=== PATIENT | female | born 1980 | race Caucasian/White ===

== ENCOUNTER 2018-07-02 20:27 | Inpatient (IN) | payer MEDICARE, MEDICAID, SELFPAY ==
[2018-07-02 20:29] VITALS: BP 95/61; PULSE 141; RESP 16; TEMP 37.2; O2SAT 99; BMI 18.2
--- NOTE | 2018-07-02 22:58 | EKG12_ITS ---
Test Reason : Blood Pressure : / mmHG Vent. Rate : 136 BPM Atrial Rate : 136 BPM P-R Int : 120 ms QRS Dur : 082 ms QT Int : 284 ms P-R-T Axes : 074 091 066 degrees QTc Int : 427 ms Sinus tachycardia Biatrial enlargement Rightward axis Abnormal ECG Confirmed by LEONARD MORALES, LUNA ([id number]), loan expeditor LORENZA BARRY ([id number] on 07/05/2018 3:26:47 PM Referred By: PERCY Confirmed By:LNUA VALLE MD
--- NOTE | 2018-07-02 22:59 | CT_ITS ---
STUDY: CTA NECK WITH CONTRAST REASON FOR EXAM: Female, 38 years old. Headache and dizziness RADIATION DOSAGE (If Supplied By Facility): CTDIvol = ( 13.41 ) mGy, DLP = ( 472.65 ) mGycm TECHNIQUE: CT angiography with multi-detector data acquisition was performed from the aortic arch to the skull base following intravenous administration of 100 ml of Isovue 370 contrast. MIP images were reconstructed from the axial data set. Post-processing of the angiographic images was performed, with multiplanar reformation and 3D reconstruction. Individualized dose optimization techniques were used for this CT. COMPARISON: None. FINDINGS: AORTIC ARCH: Normal visualized aortic arch. Normal origins of the brachiocephalic, left common carotid, and left subclavian arteries. RIGHT CAROTID ARTERIES: Normal right common carotid artery (CCA). Normal right common carotid bulb. Normal origin of the right internal carotid (ICA) artery without a hemodynamically significant stenosis. Normal visualized cervical portion of the right internal carotid artery. Normal origin of the right external carotid artery (ECA). LEFT CAROTID ARTERIES: Normal left common carotid artery (CCA). Normal left common carotid bulb. Normal origin of the left internal carotid (ICA) artery without a hemodynamically significant stenosis. Normal visualized cervical portion of the left internal carotid artery. Normal origin of the left external carotid artery (ECA). VERTEBRAL ARTERIES: Normal bilateral vertebral arteries. CT/CTA Neck W/WO Contrast IMPRESSION: Normal bilateral cervical carotid and vertebral arteries. Electronically Signed: Lane Mendez MD at 1:26 EST , Service support ,
--- NOTE | 2018-07-02 22:59 | CT_ITS ---
STUDY: CTA OF THE BRAIN REASON FOR EXAM: Female, 38 years old. Headache RADIATION DOSAGE (If Supplied By Facility): CTDIvol = ( 30.80 ) mGy, DLP = ( 793.16 ) mGycm TECHNIQUE: CT angiography was performed with a multi-detector CT scanner. Data acquisition was obtained from the skull base through the vertex following intravenous administration of ml of . MIP images were reconstructed from the axial data set. Post-processing of the angiographic images was performed, with multiplanar reformation and 3D reconstruction. Individualized dose optimization techniques were used for this CT. COMPARISON: None. FINDINGS: Normal bilateral petrous carotid arteries. Normal right cavernous carotid artery with a normal supraclinoid bifurcation. Normal left cavernous carotid artery with a normal supraclinoid bifurcation. Normal right A1 segments of the anterior cerebral artery. Normal left A1 segments of the anterior cerebral artery. Normal intact anterior communicating artery (ACOM). Normal bilateral A2 segments of the anterior cerebral arteries. Normal right M1 and M2 segments of the middle cerebral arteries, with a normal M1 bifurcation. Normal left M1 and M2 segments of the middle cerebral arteries, with a normal M1 bifurcation. Normal right posterior communicating artery (PCOM). There is a persistent origin of the left posterior cerebral artery with absence of the posterior communicating artery (PCOM). Normal bilateral vertebral arteries. Normal basilar artery with a normal basilar bifurcation. The visualized bilateral superior cerebellar (SCA) arteries are normal. Normal bilateral P1, P2 and visualized P3 segments of the posterior cerebral arteries. There is no demonstrated aneurysm of the [place]. There is no demonstrated abnormality of the visualized brain. CT/CTA Head W/WO Contrast IMPRESSION: Normal [place] without a demonstrated aneurysm or hemodynamically significant stenosis. Electronically Signed: Lane Mendez MD at 1:19 EST , Service support ,
--- NOTE | 2018-07-02 23:05 | RAD_ITS ---
STUDY: X-RAY CHEST REASON FOR EXAM: Female, 38 years old. Headache, nausea, muscle spasms, and no appetite TECHNIQUE: Single AP portable view of the chest. COMPARISON: Prior study of 01/03/2012 FINDINGS: air sampling and monitoring leads are present. The lungs are clear and expanded. There is no demonstrated pleural abnormality. Normal size heart. Normal mediastinum and anjel. Normal visualized pulmonary arteries. Normal visualized aortic arch and descending thoracic aorta. Normal visualized thoracic spine. Normal visualized ribs, clavicles, and shoulders. There is no demonstrated abnormality of the visualized soft tissue structures of the upper abdomen. RAD/Chest 1 View (Portable) IMPRESSION: Normal x-ray examination of the chest. Electronically Signed: Wan Bryant MD at 23:23 EST , Service support ,
[2018-07-02 23:20] LABS: Mucous, Urine 0 SEEN /hpf (<or=2+)
[2018-07-02 23:22] LABS: Color, Urine Yellow (Yellow); Glucose, Dipstick Normal (Normal); Ketone-Dipstick Negative (Negative); Leukocyte Esterase-Dipstick 500 /ul (Negative); Nitrite-Dipstick Positive (Negative); Occult Blood-Urine 250 /ul (Negative); Protein-Dipstick 100 mg/dl (Negative); Urine Bilirubin Dipstick Negative (Negative); Urine Clarity Sl. Cloudy (Clear); Urine Urobilinogen 8 mg/dl (Normal); Urine pH 6.5 (5.0 - 8.0)
[2018-07-02 23:29] LABS: Bacteria 2+ /hpf (None Seen); Red Blood Cells-Urine 5-10 SEEN /hpf (0-5); Squamous Epithelial Cells - UA 0-5 SEEN /hpf (5-10); White Blood Cells 50-100 SEEN /hpf (0-5)
[2018-07-02 23:31] VITALS: BP 109/59; PULSE 131; RESP 19; TEMP 36.9; O2SAT 100; O2SAT 98
[2018-07-02 23:31] LABS: Absolute Neutrophil Count 17.1 X10^3/uL (2.0-7.7); Basophil# 0.03 X10^3/uL; Basophil% 0.1 % (0-1); Eosinophil# 0.03 X10^3/uL; Eosinophils% 0.1 % (0-5); Hematocrit 44.6 % (37-47); Hemoglobin 15.6 g/dl (12.0-15.0); Lymphocyte % 5.9 % (19-41); Mean Corpuscular Hgb 32.2 pg (27.0-32.0); Mean Corpuscular Volume 92.1 fL (81-99); Mean Platelet Vol. 10.1 fl (6.2-12.0); Monocyte# 1.78 X10^3/uL; Monocyte% 8.8 % (0-10); Neutrophil # 17.11 X10^3/uL (2.7-7.7); Neutrophil % 84.8 % (47-70); Platelet Count 336 K/mm3 (150-450); RBC Distribution Width CV 12.6 % (11.6-14.6); RBC Distribution Width SD 42.8 fl (35.1-43.9); Red Blood Count 4.84 M/mm3 (4.2-5.4); White Blood Count 20.2 K/mm3 (4.4-11.0)
[2018-07-02 23:32] LABS: Differential Indicated SCAN CRITERIA MET; POSITIVE COUNT NO; POSITIVE DIFFERENTIAL YES; POSITIVE MORPHOLOGY NO
[2018-07-02] MEDS: 0.9% Normal Saline 1,000 ML IV.SOLN. 2000 ML IV (23:34)
[2018-07-02] MEDS: Ondansetron 4 MG/2 ML Vial IV (23:34)
[2018-07-02] MEDS: Morphine 4 MG/ML Syringe IV (23:34)
[2018-07-02 23:37] LABS: International Normalized Ratio 1.1; Partial Thromboplast Time 37.6 Seconds (24.1-36.2); Prothrombin Time (Protime)PT. 14.1 SECONDS (11.7-14.9)
[2018-07-02 23:43] LABS: ALB/GLOB Ratio 0.5 RATIO (0.9-2.4); AST(SGOT) 33 U/L (15-37); Alanine Aminotransfer ALT/SGPT 29 U/L (13-56); Albumin, Serum 2.8 g/dL (3.2-5.0); Alkaline Phosphatase 271 U/L (45-117); Anion Gap 11 (5-15); BUN 16 mg/dL (7-18); BUN/Creat Ratio 12.3 RATIO (10-20); CPK Total, Creatine Kinase 34 U/L (26-192); Chloride 92 mmol/L (98-107); EST Glomerular Filtration Rate 48 mL/min (>60); Est Glom Filt Rate - Afr Amer 58 mL/min (>60); Estimated Creatinine Clearance 49.43 ml/min; Globulin 5.5 g/dL (2.2-4.2); Glucose 124 mg/dL (74-106); Potassium 3.9 mmol/L (3.5-5.1); Protein, Total 8.3 g/dL (6.4-8.2); Sodium Level 131 mmol/L (136-145); Thyroid Stim Hormone (TSH) 1.18 uIU/mL (0.358-3.74)
[2018-07-03] VITALS (35 sets, daily range): BP systolic 81–127; BP diastolic 44–91; PULSE 99–156; RESP 15–27; TEMP 35.9–39.5; O2SAT 92–100; BMI 18.0; BMI 18.1
[2018-07-03 00:13] LABS: Lactic Acid 1.9 mmol/L (0.4-2.0)
[2018-07-03 00:21] LABS: Anisocytosis RARE; Macrocytosis RARE; Platelet Estimate ADEQUATE (ADEQ); Toxic Granulation RARE
[2018-07-03 01:36] LABS: Body Fluid Mononuclear WBC # 0.001 10^3/uL; Total Cell Count CSF 0.001 10^3/uL (0.000-0.000); White Count, CSF 0.001 10^3/uL (0.000-0.000)
[2018-07-03 01:53] LABS: RBC Count, Spinal Fluid 0 /mm-3 (None seen)
[2018-07-03 01:54] LABS: Appearance CSF (character) CLEAR (Clear); Auto B Fluid Analyzer BKGD Ct COUNTS W/IN LIMITS (W/IN LIMITS); CSF Color COLORLESS (Colorless); Tested Tube # 4
[2018-07-03 02:00] LABS: Glucose Spinal Fluid 65 mg/dL (40-75)
[2018-07-03 02:02] LABS: Body Fluid QC Type(s) BF1Q
--- NOTE | 2018-07-03 02:02 | PCM.HP.STD ---
Problem List (1) Back pain Status: Acute Qualifiers: Back pain location: low back pain (2) Headache Status: Acute Qualifiers: Headache type: unspecified Headache chronicity pattern: acute headache (3) Urinary frequency Status: Acute History of Present Illness Date of Admission: 07/03/18 Chief Complaint: urinary frequency, headache, low back pain The patient is a 38 year old female patient who presents to the ER with the chief complaint of generalized illness, she has headache, low back pain and urinary frequency. This began on Monday with low back pain. On Monday she tried to eat pancakes for breakfast but was nauseated and threw them up. She has not been able to tolerate much by PO since. She now has worsening pain in her lower back with an acute headache. She states that her headache was relieved somewhat after having the lumbar puncture, results pending at this time. CBC shows leukocytosis with a left shift. She is tachycardic with heart rate of 145. IV fluid resuscitation and antibiotics were initiated in the ER. She denies skin rash and was not appreciated on inspection. Lactate was 1.9. She will be admitted to the ICU. Past Medical History Allergies ibuprofen Allergy (Verified 07/02/18 20:32) Hives Home Medications: Ambulatory Orders Medication Instructions Recorded Sumatriptan Succinate [Imitrex] 50 mg PO X1 PRN 01/19/16 Topiramate [Topamax] 50 mg PO PRN PRN 12/13/16 Oxycodone [Oxyir] 5 mg PO Q4H PRN PRN #30 tablet 12/14/16 Smoking Status: Current every day smoker - *Family History Maternal History Items: No pertinent history Review of Systems Constitutional: Reports: Fever, Malaise, Weakness, Fatigue. Denies: Chills, Weight Change HEENT: Denies: Head Aches, Sinus Congestion, Sinus Drainage Cardiovascular: Denies: Chest Pain, Palpitations Respiratory: Denies: Cough, Shortness of breath at rest, Sputum production Gastrointestinal: Reports: Nausea, Vomiting. Denies: Abdominal Pain Genitourinary: Denies: Dysuria Musculoskeletal: Reports: Back Pain. Denies: Joint Pain, Joint Tenderness Skin: Denies: Rash, Wounds Neurological: Reports: Headaches. Denies: Focal weakness, Numbness, Tingling Psychiatric: Denies: Anxiety, Depression, Homicidal Ideations, Suicidal Ideations Hematologic/ Lymphatic: Denies: Easy Bruising, Easy Bleeding VTE Information - Inpt Only VTE Present on Admission: No VTE Mechan Device Prophylaxis: None VTE Pharm Prophylaxis ordered?: Yes Patient Problems: Active and Suspected Problems Back pain (Acute) Headache (Acute) Urinary frequency (Acute) - Physical Exam General: Alert, Oriented x3, Cooperative HEENT: Atraumatic, PERRLA, EOMI, Normocephalic Neck: Supple Lungs: Clear to auscultation, Normal air movement Cardiovascular: Regular rate, Normal S1, Normal S2, No murmurs, Tachycardic Abdomen: Bowel Sounds Present, Soft, Non Tender Extremities: No edema Skin: No rashes, No breakdown Musculoskeletal: No Tenderness to Palpation of Joints or Extremities, Tenderness - low back pain, neg cva tenderness Neurological: Neuro grossly intact Psych/Mental Status: Normal Affect, Appropriate Vital Signs Temp Pulse Resp BP Pulse Ox 99.0 F 141 H 24 H 102/84 H 98 07/03/18 01:33 07/03/18 01:33 07/03/18 01:33 07/03/18 01:33 07/03/18 01:33 Oxygen Delivery Method Room Air Weight: 120 lb Body Mass Index (BMI) 18.2 Laboratory Tests Past 24 Hrs 07/02/18 07/02/18 07/02/18 22:01 22:01 22:01 WBC 20.2 H RBC 4.84 Hgb 15.6 H Hct 44.6 MCV 92.1 MCH 32.2 H MCHC 35.0 RDW 12.6 RDW Differential 42.8 Plt Count 336 MPV 10.1 Immature Gran % (Auto) 0.300 Neut % (Auto) 84.8 H Lymph % (Auto) 5.9 L [place] % (Auto) 8.8 Eos % (Auto) 0.1 Baso % (Auto) 0.1 Absolute Neuts (auto) 17.1 H Absolute Lymphs (auto) 1.20 Total Counted Not Reportable Differential Comment SEE COMMENT Diff Path Review May foll Toxic Granulation RARE Platelet Estimate ADEQUATE Anisocytosis RARE Macrocytosis RARE PT 14.1 INR 1.1 APTT 37.6 H Sodium 131 L Potassium 3.9 Chloride 92 L Carbon Dioxide 28.0 Anion Gap 11 BUN 16 Creatinine 1.30 H Estim Creat Clear Calc 49.43 Est GFR (MDRD) Af Amer 58 L Est GFR (MDRD) Non-Af 48 L BUN/Creatinine Ratio 12.3 Glucose 124 H Lactic Acid Calcium 9.0 Total Bilirubin 0.70 AST 33 ALT 29 Alkaline Phosphatase 271 H Total Creatine Kinase 34 Total Protein 8.3 H Albumin 2.8 L Globulin 5.5 H Albumin/Globulin Ratio 0.5 L TSH 1.18 Urine Color Urine Clarity Urine pH Ur Specific [place] Urine Protein Urine Glucose (UA) Urine Ketones Urine Occult Blood Urine Nitrite Urine Bilirubin Urine Urobilinogen Ur Leukocyte Esterase Urine RBC Urine WBC Ur Squamous Epith Cells Urine Bacteria Urine Mucus Fld Polynuclear WBCs # Fld Polynuclear WBCs % Fluid Mononuclear WBCs Fld Mononuclear WBCs % CSF Appearance CSF Color CSF WBC CSF RBC CSF Cell Count Tube # CSF Total Cell Counted CSF Comment CSF Glucose CSF Total Protein 07/02/18 07/02/18 07/03/18 22:44 23:45 01:20 WBC RBC Hgb Hct MCV MCH MCHC RDW RDW Differential Plt Count MPV Immature Gran % (Auto) Neut % (Auto) Lymph % (Auto) [place] % (Auto) Eos % (Auto) Baso % (Auto) Absolute Neuts (auto) Absolute Lymphs (auto) Total Counted Differential Comment Diff Path Review Toxic Granulation Platelet Estimate Anisocytosis Macrocytosis PT INR APTT Sodium Potassium Chloride Carbon Dioxide Anion Gap BUN Creatinine Estim Creat Clear Calc Est GFR (MDRD) Af Amer Est GFR (MDRD) Non-Af BUN/Creatinine Ratio Glucose Lactic Acid 1.9 Calcium Total Bilirubin AST ALT Alkaline Phosphatase Total Creatine Kinase Total Protein Albumin Globulin Albumin/Globulin Ratio TSH Urine Color Yellow Urine Clarity Sl. Cloudy Urine pH 6.5 Ur Specific [place] 1.010 Urine Protein 100 H Urine Glucose (UA) Normal Urine Ketones Negative Urine Occult Blood 250 H Urine Nitrite Positive H Urine Bilirubin Negative Urine Urobilinogen 8 H Ur Leukocyte Esterase 500 H Urine RBC 5-10 SEEN Urine WBC 50-100 SEEN Ur Squamous Epith Cells 0-5 SEEN Urine Bacteria 2+ Urine Mucus 0 SEEN Fld Polynuclear WBCs # Fld Polynuclear WBCs % Fluid Mononuclear WBCs Fld Mononuclear WBCs % CSF Appearance CSF Color CSF WBC CSF RBC CSF Cell Count Tube # CSF Total Cell Counted CSF Comment CSF Glucose 65 CSF Total Protein 07/03/18 07/03/18 01:20 01:20 WBC RBC Hgb Hct MCV MCH MCHC RDW RDW Differential Plt Count MPV Immature Gran % (Auto) Neut % (Auto) Lymph % (Auto) [place] % (Auto) Eos % (Auto) Baso % (Auto) Absolute Neuts (auto) Absolute Lymphs (auto) Total Counted Differential Comment Diff Path Review Toxic Granulation Platelet Estimate Anisocytosis Macrocytosis PT INR APTT Sodium Potassium Chloride Carbon Dioxide Anion Gap BUN Creatinine Estim Creat Clear Calc Est GFR (MDRD) Af Amer Est GFR (MDRD) Non-Af BUN/Creatinine Ratio Glucose Lactic Acid Calcium Total Bilirubin AST ALT Alkaline Phosphatase Total Creatine Kinase Total Protein Albumin Globulin Albumin/Globulin Ratio TSH Urine Color Urine Clarity Urine pH Ur Specific [place] Urine Protein Urine Glucose (UA) Urine Ketones Urine Occult Blood Urine Nitrite Urine Bilirubin Urine Urobilinogen Ur Leukocyte Esterase Urine RBC Urine WBC Ur Squamous Epith Cells Urine Bacteria Urine Mucus Fld Polynuclear WBCs # 0.000 Fld Polynuclear WBCs % 0.0 Fluid Mononuclear WBCs 0.001 Fld Mononuclear WBCs % 100.0 CSF Appearance Pending CSF Color Pending CSF WBC 0.001 H CSF RBC 0 CSF Cell Count Tube # Pending CSF Total Cell Counted 0.001 H CSF Comment Pending CSF Glucose CSF Total Protein Pending Assessment/Plan All Active Problems Back pain (Acute) Headache (Acute) Urinary frequency (Acute) Plan - admit to ICU - consult health informatics advisor - continue Rocephin and Vancomycin - currently treating UTI and ruling out meningitis. - IV hydration following sepsis protocol. - LMWH for DVT prophylaxis - dilaudid 1mg IV q 3 hrs prn severe pain - nicoderm patch 14mg daily - cbc, bmp in am Code Visit Inpatient E&M: 74393 Init Hosp L3
--- NOTE | 2018-07-03 02:32 | NURSING ---
REPORT GIVEN TO GOOD IN ICU.
[2018-07-03] MEDS: HYDROmorphone 1 MG/ML Syringe IV (03:13)
--- NOTE | 2018-07-03 03:14 | PCM.RX.CS ---
Consult Pharmacy has been consulted to manage selected antiobiotic: Vancomycin Type of Consult: New start Suspected Infection: Sepsis Prior Doses of Antibiotics Received/Current Regimen: Medications Vancomycin HCl (Vancomycin) 1,000 mg in 200 mls @ 200 mls/hr IV Q24H WAQAR Discontinued Medications Vancomycin HCl 750 mg/ (Dextrose) 265 mls @ 250 mls/hr IV X1 ONE Stop: 07/03/18 02:04 Last Admin: 07/03/18 02:12 Dose: 250 mls/hr Labs: Sodium 131 mmol/L (136-145) L 07/02/18 22:01 Potassium 3.9 mmol/L (3.5-5.1) 07/02/18 22:01 Chloride 92 mmol/L (98-107) L 07/02/18 22:01 Carbon Dioxide 28.0 mmol/L (21.0-32.0) 07/02/18 22:01 Anion Gap 11 (5-15) 07/02/18 22:01 BUN 16 mg/dL (7-18) 07/02/18 22:01 Creatinine 1.30 mg/dL (0.55-1.02) H 07/02/18 22:01 Est GFR (MDRD) Af Amer 58 mL/min (>60) L 07/02/18 22:01 Est GFR (MDRD) Non-Af 48 mL/min (>60) L 07/02/18 22:01 BUN/Creatinine Ratio 12.3 RATIO (10-20) 07/02/18 22:01 Glucose 124 mg/dL (74-106) H 07/02/18 22:01 Microbiology: Microbiology 07/03/18 01:20 Csf, Spinal Fluid Gram Stain - Preliminary 07/03/18 01:20 Urine, Clean Catch Streptococcus pneumoniae Antigen (M - Final Weight used for dosin.9 kg Estimated Creatinine Clearance: 49 Goal Trough: 15-20 mcg/mL Pharmacy Plan for Drug Dosing: Pharmacy Service will continue to monitor and adjust dosing as required. Follow-Up Labs: Trough Vancomycin Labs to be done on [date and time ordered]: 07/05/18 @0132
[2018-07-03] MEDS: 0.9% Normal Saline 1,000 ML 150 ML IV ×3 (03:21→18:12)
[2018-07-03 04:37] LABS: Hematocrit 37.4 % (37-47); Hemoglobin 12.7 g/dl (12.0-15.0); Mean Corpuscular Hgb 31.2 pg (27.0-32.0); Mean Corpuscular Volume 91.9 fL (81-99); Mean Platelet Vol. 9.8 fl (6.2-12.0); Platelet Count 278 K/mm3 (150-450); RBC Distribution Width CV 12.8 % (11.6-14.6); RBC Distribution Width SD 43.1 fl (35.1-43.9); Red Blood Count 4.07 M/mm3 (4.2-5.4)
[2018-07-03 04:45] LABS: Scan Indicated on CBC? Y/N NO
[2018-07-03 04:49] LABS: Anion Gap 9 (5-15); BUN 14 mg/dL (7-18); BUN/Creat Ratio 12.1 RATIO (10-20); Calcium,Total 7.6 mg/dL (8.5-10.1); Chloride 99 mmol/L (98-107); Creatinine, Serum 1.16 mg/dL (0.55-1.02); EST Glomerular Filtration Rate 55 mL/min (>60); Est Glom Filt Rate - Afr Amer 67 mL/min (>60); Estimated Creatinine Clearance 54.86 ml/min; Glucose 97 mg/dL (74-106); Potassium 3.3 mmol/L (3.5-5.1); Sodium Level 135 mmol/L (136-145)
[2018-07-03] MEDS: Metoprolol Tartrate 5 MG/5 ML Vial IV (04:52)
[2018-07-03] MEDS: Acetaminophen 325 MG Tablet 650 MG PO ×3 (04:52→17:00)
--- NOTE | 2018-07-03 07:59 | PCM.CON.CC ---
Reason for Consult Date of Consultation: 07/03/18 Reason for Consultation: Sepsis History of Present Illness: The patient is a 38-year-old female, with a history as outlined below, who presented to the emergency department on July 03 with complaints of generalized weakness, poor p.o. intake, foul-smelling urine, abdominal discomfort, nausea and vomiting. She was also noted to have a headache without photophobia or nuchal rigidity. The patient is a current every day smoker. On presentation to the emergency department, the patient was afebrile and tachycardic with a heart rate of 140. Initial laboratory evaluation revealed an elevated white blood cell count to 20,000. Chemistry profile revealed mild hyponatremia and hypochloremia along with acute kidney injury with a creatinine of 1.30. Serum lactate was normal at 1.9. Alkaline phosphatase was increased to 271 with normal transaminases. Head neck CTA was obtained and found to be normal. Plain film chest x-ray revealed no acute cardiopulmonary process. The patient received supplemental IV fluid hydration and was started on antibiotics. She was subsequently transferred to the medical intensive care unit for ongoing management. Past Medical History Allergies ibuprofen Allergy (Verified 07/02/18 20:32) Hives Home Medications: Ambulatory Orders Medication Instructions Recorded Aspirin/Acetaminophen/Caffeine 1 each PO DAILY PRN 07/03/18 [Excedrin Migraine Caplet] Smoking Status: Current every day smoker - *Family History Maternal History Items: No pertinent history Review of Systems Constitutional: Reports: Fever, Malaise, Weakness Eyes: Denies: Blurred vision, Double vision HEENT: Denies: Head Aches, Sinus Congestion, Sinus Drainage Cardiovascular: Denies: Chest Pain, Palpitations Gastrointestinal: Reports: Abdominal Pain, Nausea, Vomiting. Denies: Diarrhea Genitourinary: Reports: Frequency. Denies: Dysuria Musculoskeletal: Reports: Back Pain Skin: Denies: Rash, Wounds Neurological: Reports: Headaches Psychiatric: Denies: Anxiety, Depression, Homicidal Ideations, Suicidal Ideations Hematologic/ Lymphatic: Denies: Easy Bruising, Easy Bleeding Patient Problems: Active and Suspected Problems Back pain (Acute) Headache (Acute) Urinary frequency (Acute) Objective: The patient's most recent lab work, culture data and imaging studies have all been personally reviewed. Blood, urine and CSF cultures are pending. - Physical Exam General: Alert, Oriented x3, Cooperative, No apparent distress HEENT: Atraumatic, PERRLA, Normocephalic Oral: No Gingival or Mucosal Lesions/ Ulcerations Neck: Supple, No Nodes, Trachea Midline Lungs: No rhonchi, No wheeze, No rales, Diminished Cardiovascular: Normal S1, Normal S2, No murmurs, Tachycardic Abdomen: Bowel Sounds Present, Soft, Non Tender Extremities: No clubbing, No cyanosis, No edema Skin: No breakdown, - - Multiple tattoos noted Musculoskeletal: No Tenderness to Palpation of Joints or Extremities Lymphatic: No Cervical, Supraclavicular, or Inguinal Adenopathy Neurological: Cranial nerves II-XII grossly intact, Neuro grossly intact Psych/Mental Status: Normal Affect, Appropriate Vital Signs Temp Pulse Resp BP Pulse Ox 37.9 C H 119 H 20 H 85/66 L 98 07/03/18 06:00 07/03/18 07:00 07/03/18 07:00 07/03/18 07:00 07/03/18 07:00 Oxygen Flow Rate (L/min) 2 Oxygen Delivery Method Nasal Cannula Weight: 118 lb 13.266 oz Body Mass Index (BMI) 18.0 Intake and Output for Last 24 Hours 07/01/18 07/02/18 07/03/18 23:59 23:59 23:59 Intake Total 1512 / 1512 Output Total 500 / 500 Balance 1012 / 1012 Microbiology Past 72 Hours 07/03/18 01:20 Gram Stain - Preliminary Csf, Spinal Fluid 07/03/18 01:20 Streptococcus pneumoniae Antigen (M - Final Urine, Clean Catch Laboratory Tests Past 24 Hrs 07/02/18 07/02/18 07/02/18 22:01 22:01 22:01 WBC 20.2 H RBC 4.84 Hgb 15.6 H Hct 44.6 MCV 92.1 MCH 32.2 H MCHC 35.0 RDW 12.6 RDW Differential 42.8 Plt Count 336 MPV 10.1 Immature Gran % (Auto) 0.300 Neut % (Auto) 84.8 H Lymph % (Auto) 5.9 L [place] % (Auto) 8.8 Eos % (Auto) 0.1 Baso % (Auto) 0.1 Absolute Neuts (auto) 17.1 H Absolute Lymphs (auto) 1.20 Total Counted Not Reportable Differential Comment SEE COMMENT Diff Path Review May foll Toxic Granulation RARE Platelet Estimate ADEQUATE Anisocytosis RARE Macrocytosis RARE PT 14.1 INR 1.1 APTT 37.6 H Sodium 131 L Potassium 3.9 Chloride 92 L Carbon Dioxide 28.0 Anion Gap 11 BUN 16 Creatinine 1.30 H Estim Creat Clear Calc 49.43 Est GFR (MDRD) Af Amer 58 L Est GFR (MDRD) Non-Af 48 L BUN/Creatinine Ratio 12.3 Glucose 124 H Lactic Acid Calcium 9.0 Total Bilirubin 0.70 AST 33 ALT 29 Alkaline Phosphatase 271 H Total Creatine Kinase 34 Total Protein 8.3 H Albumin 2.8 L Globulin 5.5 H Albumin/Globulin Ratio 0.5 L TSH 1.18 Urine Color Urine Clarity Urine pH Ur Specific [place] Urine Protein Urine Glucose (UA) Urine Ketones Urine Occult Blood Urine Nitrite Urine Bilirubin Urine Urobilinogen Ur Leukocyte Esterase Urine RBC Urine WBC Ur Squamous Epith Cells Urine Bacteria Urine Mucus Fld Polynuclear WBCs # Fld Polynuclear WBCs % Fluid Mononuclear WBCs Fld Mononuclear WBCs % CSF Appearance CSF Color CSF WBC CSF RBC CSF Cell Count Tube # CSF Total Cell Counted CSF Comment CSF Glucose CSF Total Protein 07/02/18 07/02/18 07/03/18 22:44 23:45 01:20 WBC RBC Hgb Hct MCV MCH MCHC RDW RDW Differential Plt Count MPV Immature Gran % (Auto) Neut % (Auto) Lymph % (Auto) [place] % (Auto) Eos % (Auto) Baso % (Auto) Absolute Neuts (auto) Absolute Lymphs (auto) Total Counted Differential Comment Diff Path Review Toxic Granulation Platelet Estimate Anisocytosis Macrocytosis PT INR APTT Sodium Potassium Chloride Carbon Dioxide Anion Gap BUN Creatinine Estim Creat Clear Calc Est GFR (MDRD) Af Amer Est GFR (MDRD) Non-Af BUN/Creatinine Ratio Glucose Lactic Acid 1.9 Calcium Total Bilirubin AST ALT Alkaline Phosphatase Total Creatine Kinase Total Protein Albumin Globulin Albumin/Globulin Ratio TSH Urine Color Yellow Urine Clarity Sl. Cloudy Urine pH 6.5 Ur Specific [place] 1.010 Urine Protein 100 H Urine Glucose (UA) Normal Urine Ketones Negative Urine Occult Blood 250 H Urine Nitrite Positive H Urine Bilirubin Negative Urine Urobilinogen 8 H Ur Leukocyte Esterase 500 H Urine RBC 5-10 SEEN Urine WBC 50-100 SEEN Ur Squamous Epith Cells 0-5 SEEN Urine Bacteria 2+ Urine Mucus 0 SEEN Fld Polynuclear WBCs # Fld Polynuclear WBCs % Fluid Mononuclear WBCs Fld Mononuclear WBCs % CSF Appearance CSF Color CSF WBC CSF RBC CSF Cell Count Tube # CSF Total Cell Counted CSF Comment CSF Glucose 65 CSF Total Protein 07/03/18 07/03/18 07/03/18 01:20 01:20 03:58 WBC 15.0 H RBC 4.07 L Hgb 12.7 Hct 37.4 MCV 91.9 MCH 31.2 MCHC 34.0 RDW 12.8 RDW Differential 43.1 Plt Count 278 MPV 9.8 Immature Gran % (Auto) Neut % (Auto) Lymph % (Auto) [place] % (Auto) Eos % (Auto) Baso % (Auto) Absolute Neuts (auto) Absolute Lymphs (auto) Total Counted Differential Comment Diff Path Review Toxic Granulation Platelet Estimate Anisocytosis Macrocytosis PT INR APTT Sodium Potassium Chloride Carbon Dioxide Anion Gap BUN Creatinine Estim Creat Clear Calc Est GFR (MDRD) Af Amer Est GFR (MDRD) Non-Af BUN/Creatinine Ratio Glucose Lactic Acid Calcium Total Bilirubin AST ALT Alkaline Phosphatase Total Creatine Kinase Total Protein Albumin Globulin Albumin/Globulin Ratio TSH Urine Color Urine Clarity Urine pH Ur Specific [place] Urine Protein Urine Glucose (UA) Urine Ketones Urine Occult Blood Urine Nitrite Urine Bilirubin Urine Urobilinogen Ur Leukocyte Esterase Urine RBC Urine WBC Ur Squamous Epith Cells Urine Bacteria Urine Mucus Fld Polynuclear WBCs # 0.000 Fld Polynuclear WBCs % 0.0 Fluid Mononuclear WBCs 0.001 Fld Mononuclear WBCs % 100.0 CSF Appearance CLEAR CSF Color COLORLESS CSF WBC 0.001 H CSF RBC 0 CSF Cell Count Tube # 4 CSF Total Cell Counted 0.001 H CSF Comment May follow CSF Glucose CSF Total Protein 40.0 07/03/18 03:58 WBC RBC Hgb Hct MCV MCH MCHC RDW RDW Differential Plt Count MPV Immature Gran % (Auto) Neut % (Auto) Lymph % (Auto) [place] % (Auto) Eos % (Auto) Baso % (Auto) Absolute Neuts (auto) Absolute Lymphs (auto) Total Counted Differential Comment Diff Path Review Toxic Granulation Platelet Estimate Anisocytosis Macrocytosis PT INR APTT Sodium 135 L Potassium 3.3 L Chloride 99 Carbon Dioxide 27.0 Anion Gap 9 BUN 14 Creatinine 1.16 H Estim Creat Clear Calc 54.86 Est GFR (MDRD) Af Amer 67 Est GFR (MDRD) Non-Af 55 L BUN/Creatinine Ratio 12.1 Glucose 97 Lactic Acid Calcium 7.6 L Total Bilirubin AST ALT Alkaline Phosphatase Total Creatine Kinase Total Protein Albumin Globulin Albumin/Globulin Ratio TSH Urine Color Urine Clarity Urine pH Ur Specific [place] Urine Protein Urine Glucose (UA) Urine Ketones Urine Occult Blood Urine Nitrite Urine Bilirubin Urine Urobilinogen Ur Leukocyte Esterase Urine RBC Urine WBC Ur Squamous Epith Cells Urine Bacteria Urine Mucus Fld Polynuclear WBCs # Fld Polynuclear WBCs % Fluid Mononuclear WBCs Fld Mononuclear WBCs % CSF Appearance CSF Color CSF WBC CSF RBC CSF Cell Count Tube # CSF Total Cell Counted CSF Comment CSF Glucose CSF Total Protein Clinical Impression(s) from Imaging Studies Head CTA 07/02/18 22:59 IMPRESSION: Normal [place] without a demonstrated aneurysm or hemodynamically significant stenosis. Electronically Signed: Lane Mendez MD at 1:19 EST , Service support , Neck CTA 07/02/18 22:59 IMPRESSION: Normal bilateral cervical carotid and vertebral arteries. Electronically Signed: Lane Mendez MD at 1:26 EST , Service support , Chest X-Ray 07/02/18 23:05 IMPRESSION: Normal x-ray examination of the chest. Electronically Signed: Wan Bryant MD at 23:23 EST , Service support , Assessment/Plan Active and Suspected Problems Back pain (Acute) Headache (Acute) Urinary frequency (Acute) RECOMMENDATIONS: 1. Continue broad-spectrum antibiotics, pending finalized infectious workup. 2. Discontinue Dilaudid. 3. Continue Lovenox for DVT prophylaxis 4. Tylenol as needed for headache 5. Continue supplemental IV fluid hydration 6. Potassium repletion as indicated. IMPRESSIONS: 1. Sepsis secondary to suspected cystitis The patient presented with symptoms concerning for urinary tract infection with urinalysis consistent with potential infectious etiology. Urine and blood cultures are currently pending. Continue ceftriaxone, pending finalized infectious workup. Okay from my perspective to discontinue vancomycin. Continue supplemental IV fluid hydration accordingly. Encourage p.o. intake. The patient remains hemodynamically stable. 2. Nonspecific headache Low clinical index suspicion for underlying meningitis. LP was completed in the emergency department but no organisms were identified on Gram stain. Tylenol can be utilized as needed for continued headache pain. 3. Acute kidney injury Likely prerenal in etiology. Anticipate improvement with volume expansion. Urine output remains appropriate. No indication for renal replacement therapy at this time. 4. Hypokalemia Potassium repletion as ordered. Recheck level in the morning. 5. Tobacco dependency Smoking cessation is advisable. Nicotine replacement therapy can be offered while admitted to the hospital. This note was generated with [employer] dictation software. It may contain incorrect words, spelling, and punctuation that were not noted in checking the note before signing. Code Visit Inpatient E&M: 03328 Init Hosp L3
--- NOTE | 2018-07-03 08:06 | CON.PCM_ITS ---
Reason for Consult Date of Consultation: 07/03/18 Reason for Consultation: Sepsis History of Present Illness: The patient is a 38-year-old female, with a history as outlined below, who presented to the emergency department on July 03 with complaints of generalized weakness, poor p.o. intake, foul-smelling urine, abdominal discomfort, nausea and vomiting. She was also noted to have a headache without photophobia or nuchal rigidity. The patient is a current every day smoker. On presentation to the emergency department, the patient was afebrile and tachycardic with a heart rate of 140. Initial laboratory evaluation revealed an elevated white blood cell count to 20,000. Chemistry profile revealed mild hyponatremia and hypochloremia along with acute kidney injury with a creatinine of 1.30. Serum lactate was normal at 1.9. Alkaline phosphatase was increased to 271 with normal transaminases. Head neck CTA was obtained and found to be normal. Plain film chest x-ray revealed no acute cardiopulmonary process. The patient received supplemental IV fluid hydration and was started on antibiotics. She was subsequently transferred to the medical intensive care unit for ongoing management. Past Medical History Allergies ibuprofen Allergy (Verified 07/02/18 20:32) Hives Home Medications: Ambulatory Orders Medication Instructions Recorded Aspirin/Acetaminophen/Caffeine 1 each PO DAILY PRN 07/03/18 [Excedrin Migraine Caplet] Smoking Status: Current every day smoker - *Family History Maternal History Items: No pertinent history Review of Systems Constitutional: Reports: Fever, Malaise, Weakness Eyes: Denies: Blurred vision, Double vision HEENT: Denies: Head Aches, Sinus Congestion, Sinus Drainage Cardiovascular: Denies: Chest Pain, Palpitations Gastrointestinal: Reports: Abdominal Pain, Nausea, Vomiting. Denies: Diarrhea Genitourinary: Reports: Frequency. Denies: Dysuria Musculoskeletal: Reports: Back Pain Skin: Denies: Rash, Wounds Neurological: Reports: Headaches Psychiatric: Denies: Anxiety, Depression, Homicidal Ideations, Suicidal Ideations Hematologic/ Lymphatic: Denies: Easy Bruising, Easy Bleeding Patient Problems: Active and Suspected Problems Back pain (Acute) Headache (Acute) Urinary frequency (Acute) Objective: The patient's most recent lab work, culture data and imaging studies have all been personally reviewed. Blood, urine and CSF cultures are pending. - Physical Exam General: Alert, Oriented x3, Cooperative, No apparent distress HEENT: Atraumatic, PERRLA, Normocephalic Oral: No Gingival or Mucosal Lesions/ Ulcerations Neck: Supple, No Nodes, Trachea Midline Lungs: No rhonchi, No wheeze, No rales, Diminished Cardiovascular: Normal S1, Normal S2, No murmurs, Tachycardic Abdomen: Bowel Sounds Present, Soft, Non Tender Extremities: No clubbing, No cyanosis, No edema Skin: No breakdown, - - Multiple tattoos noted Musculoskeletal: No Tenderness to Palpation of Joints or Extremities Lymphatic: No Cervical, Supraclavicular, or Inguinal Adenopathy Neurological: Cranial nerves II-XII grossly intact, Neuro grossly intact Psych/Mental Status: Normal Affect, Appropriate Vital Signs Temp Pulse Resp BP Pulse Ox 37.9 C H 119 H 20 H 85/66 L 98 07/03/18 06:00 07/03/18 07:00 07/03/18 07:00 07/03/18 07:00 07/03/18 07:00 Oxygen Flow Rate (L/min) 2 Oxygen Delivery Method Nasal Cannula Weight: 118 lb 13.266 oz Body Mass Index (BMI) 18.0 Intake and Output for Last 24 Hours 07/01/18 07/02/18 07/03/18 23:59 23:59 23:59 Intake Total 1512 / 1512 Output Total 500 / 500 Balance 1012 / 1012 Microbiology Past 72 Hours 07/03/18 01:20 Gram Stain - Preliminary Csf, Spinal Fluid 07/03/18 01:20 Streptococcus pneumoniae Antigen (M - Final Urine, Clean Catch Laboratory Tests Past 24 Hrs 07/02/18 07/02/18 07/02/18 22:01 22:01 22:01 WBC 20.2 H RBC 4.84 Hgb 15.6 H Hct 44.6 MCV 92.1 MCH 32.2 H MCHC 35.0 RDW 12.6 RDW Differential 42.8 Plt Count 336 MPV 10.1 Immature Gran % (Auto) 0.300 Neut % (Auto) 84.8 H Lymph % (Auto) 5.9 L [place] % (Auto) 8.8 Eos % (Auto) 0.1 Baso % (Auto) 0.1 Absolute Neuts (auto) 17.1 H Absolute Lymphs (auto) 1.20 Total Counted Not Reportable Differential Comment SEE COMMENT Diff Path Review May foll Toxic Granulation RARE Platelet Estimate ADEQUATE Anisocytosis RARE Macrocytosis RARE PT 14.1 INR 1.1 APTT 37.6 H Sodium 131 L Potassium 3.9 Chloride 92 L Carbon Dioxide 28.0 Anion Gap 11 BUN 16 Creatinine 1.30 H Estim Creat Clear Calc 49.43 Est GFR (MDRD) Af Amer 58 L Est GFR (MDRD) Non-Af 48 L BUN/Creatinine Ratio 12.3 Glucose 124 H Lactic Acid Calcium 9.0 Total Bilirubin 0.70 AST 33 ALT 29 Alkaline Phosphatase 271 H Total Creatine Kinase 34 Total Protein 8.3 H Albumin 2.8 L Globulin 5.5 H Albumin/Globulin Ratio 0.5 L TSH 1.18 Urine Color Urine Clarity Urine pH Ur Specific [place] Urine Protein Urine Glucose (UA) Urine Ketones Urine Occult Blood Urine Nitrite Urine Bilirubin Urine Urobilinogen Ur Leukocyte Esterase Urine RBC Urine WBC Ur Squamous Epith Cells Urine Bacteria Urine Mucus Fld Polynuclear WBCs # Fld Polynuclear WBCs % Fluid Mononuclear WBCs Fld Mononuclear WBCs % CSF Appearance CSF Color CSF WBC CSF RBC CSF Cell Count Tube # CSF Total Cell Counted CSF Comment CSF Glucose CSF Total Protein 07/02/18 07/02/18 07/03/18 22:44 23:45 01:20 WBC RBC Hgb Hct MCV MCH MCHC RDW RDW Differential Plt Count MPV Immature Gran % (Auto) Neut % (Auto) Lymph % (Auto) [place] % (Auto) Eos % (Auto) Baso % (Auto) Absolute Neuts (auto) Absolute Lymphs (auto) Total Counted Differential Comment Diff Path Review Toxic Granulation Platelet Estimate Anisocytosis Macrocytosis PT INR APTT Sodium Potassium Chloride Carbon Dioxide Anion Gap BUN Creatinine Estim Creat Clear Calc Est GFR (MDRD) Af Amer Est GFR (MDRD) Non-Af BUN/Creatinine Ratio Glucose Lactic Acid 1.9 Calcium Total Bilirubin AST ALT Alkaline Phosphatase Total Creatine Kinase Total Protein Albumin Globulin Albumin/Globulin Ratio TSH Urine Color Yellow Urine Clarity Sl. Cloudy Urine pH 6.5 Ur Specific [place] 1.010 Urine Protein 100 H Urine Glucose (UA) Normal Urine Ketones Negative Urine Occult Blood 250 H Urine Nitrite Positive H Urine Bilirubin Negative Urine Urobilinogen 8 H Ur Leukocyte Esterase 500 H Urine RBC 5-10 SEEN Urine WBC 50-100 SEEN Ur Squamous Epith Cells 0-5 SEEN Urine Bacteria 2+ Urine Mucus 0 SEEN Fld Polynuclear WBCs # Fld Polynuclear WBCs % Fluid Mononuclear WBCs Fld Mononuclear WBCs % CSF Appearance CSF Color CSF WBC CSF RBC CSF Cell Count Tube # CSF Total Cell Counted CSF Comment CSF Glucose 65 CSF Total Protein 07/03/18 07/03/18 07/03/18 01:20 01:20 03:58 WBC 15.0 H RBC 4.07 L Hgb 12.7 Hct 37.4 MCV 91.9 MCH 31.2 MCHC 34.0 RDW 12.8 RDW Differential 43.1 Plt Count 278 MPV 9.8 Immature Gran % (Auto) Neut % (Auto) Lymph % (Auto) [place] % (Auto) Eos % (Auto) Baso % (Auto) Absolute Neuts (auto) Absolute Lymphs (auto) Total Counted Differential Comment Diff Path Review Toxic Granulation Platelet Estimate Anisocytosis Macrocytosis PT INR APTT Sodium Potassium Chloride Carbon Dioxide Anion Gap BUN Creatinine Estim Creat Clear Calc Est GFR (MDRD) Af Amer Est GFR (MDRD) Non-Af BUN/Creatinine Ratio Glucose Lactic Acid Calcium Total Bilirubin AST ALT Alkaline Phosphatase Total Creatine Kinase Total Protein Albumin Globulin Albumin/Globulin Ratio TSH Urine Color Urine Clarity Urine pH Ur Specific [place] Urine Protein Urine Glucose (UA) Urine Ketones Urine Occult Blood Urine Nitrite Urine Bilirubin Urine Urobilinogen Ur Leukocyte Esterase Urine RBC Urine WBC Ur Squamous Epith Cells Urine Bacteria Urine Mucus Fld Polynuclear WBCs # 0.000 Fld Polynuclear WBCs % 0.0 Fluid Mononuclear WBCs 0.001 Fld Mononuclear WBCs % 100.0 CSF Appearance CLEAR CSF Color COLORLESS CSF WBC 0.001 H CSF RBC 0 CSF Cell Count Tube # 4 CSF Total Cell Counted 0.001 H CSF Comment May follow CSF Glucose CSF Total Protein 40.0 07/03/18 03:58 WBC RBC Hgb Hct MCV MCH MCHC RDW RDW Differential Plt Count MPV Immature Gran % (Auto) Neut % (Auto) Lymph % (Auto) [place] % (Auto) Eos % (Auto) Baso % (Auto) Absolute Neuts (auto) Absolute Lymphs (auto) Total Counted Differential Comment Diff Path Review Toxic Granulation Platelet Estimate Anisocytosis Macrocytosis PT INR APTT Sodium 135 L Potassium 3.3 L Chloride 99 Carbon Dioxide 27.0 Anion Gap 9 BUN 14 Creatinine 1.16 H Estim Creat Clear Calc 54.86 Est GFR (MDRD) Af Amer 67 Est GFR (MDRD) Non-Af 55 L BUN/Creatinine Ratio 12.1 Glucose 97 Lactic Acid Calcium 7.6 L Total Bilirubin AST ALT Alkaline Phosphatase Total Creatine Kinase Total Protein Albumin Globulin Albumin/Globulin Ratio TSH Urine Color Urine Clarity Urine pH Ur Specific [place] Urine Protein Urine Glucose (UA) Urine Ketones Urine Occult Blood Urine Nitrite Urine Bilirubin Urine Urobilinogen Ur Leukocyte Esterase Urine RBC Urine WBC Ur Squamous Epith Cells Urine Bacteria Urine Mucus Fld Polynuclear WBCs # Fld Polynuclear WBCs % Fluid Mononuclear WBCs Fld Mononuclear WBCs % CSF Appearance CSF Color CSF WBC CSF RBC CSF Cell Count Tube # CSF Total Cell Counted CSF Comment CSF Glucose CSF Total Protein Clinical Impression(s) from Imaging Studies Head CTA 07/02/18 22:59 IMPRESSION: Normal [place] without a demonstrated aneurysm or hemodynamically significant stenosis. Electronically Signed: Lane Mendez MD at 1:19 EST , Service support , Neck CTA 07/02/18 22:59 IMPRESSION: Normal bilateral cervical carotid and vertebral arteries. Electronically Signed: Lane Mendez MD at 1:26 EST , Service support , Chest X-Ray 07/02/18 23:05 IMPRESSION: Normal x-ray examination of the chest. Electronically Signed: Wan Bryant MD at 23:23 EST , Service support , Assessment/Plan Active and Suspected Problems Back pain (Acute) Headache (Acute) Urinary frequency (Acute) RECOMMENDATIONS: 1. Continue broad-spectrum antibiotics, pending finalized infectious workup. 2. Discontinue Dilaudid. 3. Continue Lovenox for DVT prophylaxis 4. Tylenol as needed for headache 5. Continue supplemental IV fluid hydration 6. Potassium repletion as indicated. IMPRESSIONS: 1. Sepsis secondary to suspected cystitis The patient presented with symptoms concerning for urinary tract infection with urinalysis consistent with potential infectious etiology. Urine and blood cultures are currently pending. Continue ceftriaxone, pending finalized infectious workup. Okay from my perspective to discontinue vancomycin. Continue supplemental IV fluid hydration accordingly. Encourage p.o. intake. The patient remains hemodynamically stable. 2. Nonspecific headache Low clinical index suspicion for underlying meningitis. LP was completed in the emergency department but no organisms were identified on Gram stain. Tylenol can be utilized as needed for continued headache pain. 3. Acute kidney injury Likely prerenal in etiology. Anticipate improvement with volume expansion. Urine output remains appropriate. No indication for renal replacement therapy at this time. 4. Hypokalemia Potassium repletion as ordered. Recheck level in the morning. 5. Tobacco dependency Smoking cessation is advisable. Nicotine replacement therapy can be offered while admitted to the hospital. This note was generated with [employer] dictation software. It may contain incorrect words, spelling, and punctuation that were not noted in checking the note before signing. Code Visit Inpatient E&M: 99067 Init Hosp L3
--- NOTE | 2018-07-03 08:16 | PCM.PN.BLA ---
Progress Note Patient is a 38-year-old lady who presented with progressive generalized weakness associated with headache and muscle spasms. Patient underwent extensive workup including lumbar puncture which was negative for meningitis. Her urinalysis came back positive for acute cystitis started on broad-spectrum antibiotic therapy and admitted for subsequent management Patient has been seen and examined headache much improved compared to when she came in. Assessment: 1. Sepsis secondary to acute cystitis; cultures including blood and urine were sent on admission patient started on Rocephin with plans to adjust medications based on results 2. Headache: Lumbar puncture came back negative 3. Hypokalemia corrected per protocol 4. Tobacco dependence counseled on cessation, offered nicotine patch for tobacco cravings 5. DVT prophylaxis low risk did encourage early ambulation
--- NOTE | 2018-07-03 08:32 | ED.DCSUM_ITS ---
- ER Visit Summary Date of Service: 07/03/18 Chief Complaint: Headache History of Present Illness: The patient is a 38 F presenting for evaluation secondary to headache. Patient reports over the course of the last 3 days she has been dealing with intermittent headaches. Patient states that she is getting an abnormal stress mall and a metallic taste in her mouth and then she is getting a shooting sharp right temporal headache. Patient states that food is also tasting funny she is having back spasms and numbness from her waist down. She denies that there is any sort of weakness associated with this. Patient endorses that she has cloudy urine and that she has been dizzy. She also endorses that she is having sweats. Patient does smoke tobacco, denies any illicit drug use. She denies any stimulant use other than coffee 1 time a day. Physical Examination: Vital signs notable for heart rate of 140. Cachectic female no acute distress. No temporal artery tenderness. Normal fundi PERRLA EOMI moist mucous membranes. Neck supple no meningismus negative Brudzinski Kernig and joint testing. Heart was tachycardic regular no murmurs. Lungs clear. Abdomen soft nontender. Remedies nontender, skin normal color no rash no evidence of petechia patient alert and oriented no lateralizing deficits. Test Results: CBC demonstrates a leukocytosis of 20, chemistry is normal, urinalysis is infected, lactic acid is negative. CT angiogram of the brain and cervical spine are found to be negative. Lumbar puncture shows no evidence of infectious etiologies Emergency Department Course and Treatment: Patient presented for evaluation secondary to severe headaches. Patient was found to be septic with a white count of 20. Given the patient's neurologic symptoms associated with this there is at least some concern for the possibility of meningitis is along with this. Patient was verbally and consented written for a lumbar puncture. Risks and benefits were discussed. Patient was placed in the left lateral decubitus position. Patient was prepped with Betadine, and in a sterile fashion a spinal needle was placed in the L4-L5 interspace. Clear fluid was obtained, a total of 9 cc were collected and a Band-Aid was placed over the area patient tolerated this well. Patient was given Rocephin and vancomycin. Patient will be admitted to intensive care. Disposition: Admission Impression: 1. UTI 2. Sepsis 3. Headache with concern for meningitis Critical care time 45 minutes This note was generated with [employer] dictation software. It may contain incorrect words, spelling, and punctuation that were not noted in review of the chart prior to signing ED Disposition - Plan for ED Patient: Disposition: Acute Care Hospital [facility] Chief Complaint: Headache
[2018-07-03] MEDS: 0.9% Normal Saline 1,000 ML 999 ML IV ×2 (09:10→10:21)
--- NOTE | 2018-07-03 09:23 | CASEMGMT ---
Addendum entered by Chris Ge 07/03/18 10:57: Back Tacker spoke with FLORES PRUETT regarding pt's low BMI. FLORES PRUETT spoke with pt re: ability to purchase groceries, provide for food needs. Pt stated she has applied for food stamps, but has not received yet. Did verbalize that she cannot afford much in groceries. FLORES PRUETT offered to have SW speak with her and pt is agreeable. Consult placed. Original Note: FLORES PRUETT ASSESSMENT PCP: Dr. Louis PHARMACY: [facility] Michael PRESCRIPTION COVERGE: unsure, pt states she has not needed prescriptions in a long time TRANSPORTATION: drives, has car LIVING ARRANGEMENTS: Lives independently with significant other. DME: no DME DC PLAN: Home, no needs identified.
[2018-07-03] MEDS: Enoxaparin 40 MG/0.4 ML Syringe SC (09:25)
[2018-07-03 10:42] LABS: Pathologist Review Reviewed
[2018-07-03 10:44] LABS: Pathologist Review Reviewed
[2018-07-03] MEDS: Aspirin 325 MG Tablet PO (21:18)
[2018-07-04] VITALS (21 sets, daily range): BP systolic 86–112; BP diastolic 46–77; PULSE 81–127; RESP 18–30; TEMP 36.4–37.7; O2SAT 97–100
[2018-07-04] MEDS: 0.9% Normal Saline 1,000 ML 150 ML IV ×2 (01:21→08:27)
[2018-07-04 05:33] LABS: Anion Gap 8 (5-15); BUN 16 mg/dL (7-18); BUN/Creat Ratio 18.5 RATIO (10-20); Calcium,Total 7.5 mg/dL (8.5-10.1); Chloride 109 mmol/L (98-107); Creatinine, Serum 0.87 mg/dL (0.55-1.02); EST Glomerular Filtration Rate 77 mL/min (>60); Est Glom Filt Rate - Afr Amer 93 mL/min (>60); Estimated Creatinine Clearance 73.14 ml/min; Glucose 90 mg/dL (74-106); Potassium 3.6 mmol/L (3.5-5.1); Sodium Level 142 mmol/L (136-145)
[2018-07-04] MEDS: Acetaminophen 325 MG Tablet 650 MG PO ×3 (06:01→23:02)
[2018-07-04] MEDS: 0.9% NaCl Peripheral Flush Adult/Peds IV ×2 (06:50→23:20)
--- NOTE | 2018-07-04 07:14 | PN_ITS ---
Subjective: The patient was seen and examined at the bedside this morning. Events from the last 24 hours have been reviewed. The patient is currently afebrile, hemodynamically stable and maintaining appropriate oxygen saturations on room air. No overnight issues were noted by the nursing staff. The patient is alert and sitting upright in bed eating breakfast. She denies any pain complaints. Objective: The patient's most recent lab work, culture data and imaging studies have all been personally reviewed. Urine culture dated July 02 revealed presumptive E. coli. Blood cultures were also positive for gram-negative's. CSF cultures are pending. General: Alert, Oriented x3, Cooperative, No apparent distress HEENT: Atraumatic, PERRLA, Normocephalic Oral: Moist Mucosa, No Gingival or Mucosal Lesions/ Ulcerations Neck: Supple, No Nodes, Trachea Midline Lungs: No rhonchi, No wheeze, No rales, Diminished Cardiovascular: Normal S1, Normal S2, No murmurs, Tachycardic Abdomen: Bowel Sounds Present, Soft, Non Tender, Non-Distended Extremities: No clubbing, No cyanosis, No edema Skin: - - No significant change from previous. Musculoskeletal: No Tenderness to Palpation of Joints or Extremities, No Muscle Wasting Lymphatic: No Cervical, Supraclavicular, or Inguinal Adenopathy Neurological: Cranial nerves II-XII grossly intact, Neuro grossly intact Psych/Mental Status: Alert and oriented to time, place, person, mood and affect Vital Signs Temp Pulse Resp BP Pulse Ox 37.7 C H 120 H 20 H 97/71 99 07/04/18 06:00 07/04/18 07:00 07/04/18 07:00 07/04/18 07:00 07/04/18 07:00 Oxygen Flow Rate (L/min) 2 Oxygen Delivery Method Room Air Weight: 130 lb 4.691 oz Body Mass Index (BMI) 18.0 Intake and Output for Last 24 Hours 07/02/18 07/03/18 07/04/18 23:59 23:59 23:59 Intake Total 6972 / 6972 2618 / 2618 Output Total 2450 / 2450 2600 / 2600 Balance 4522 / 4522 Labs (Last 48 Hours) 07/02/18 07/02/18 07/02/18 22:01 22:01 22:01 WBC 20.2 H RBC 4.84 Hgb 15.6 H Hct 44.6 MCV 92.1 MCH 32.2 H MCHC 35.0 RDW 12.6 RDW Differential 42.8 Plt Count 336 MPV 10.1 Immature Gran % (Auto) 0.300 Neut % (Auto) 84.8 H Lymph % (Auto) 5.9 L [place] % (Auto) 8.8 Eos % (Auto) 0.1 Baso % (Auto) 0.1 Absolute Neuts (auto) 17.1 H Absolute Lymphs (auto) 1.20 Total Counted Not Reportable Differential Comment SEE COMMENT Diff Path Review Reviewed Toxic Granulation RARE Platelet Estimate ADEQUATE Anisocytosis RARE Macrocytosis RARE PT 14.1 INR 1.1 APTT 37.6 H Sodium 131 L Potassium 3.9 Chloride 92 L Carbon Dioxide 28.0 Anion Gap 11 BUN 16 Creatinine 1.30 H Estim Creat Clear Calc 49.43 Est GFR (MDRD) Af Amer 58 L Est GFR (MDRD) Non-Af 48 L BUN/Creatinine Ratio 12.3 Glucose 124 H Lactic Acid Calcium 9.0 Total Bilirubin 0.70 AST 33 ALT 29 Alkaline Phosphatase 271 H Total Creatine Kinase 34 Total Protein 8.3 H Albumin 2.8 L Globulin 5.5 H Albumin/Globulin Ratio 0.5 L TSH 1.18 Urine Color Urine Clarity Urine pH Ur Specific [place] Urine Protein Urine Glucose (UA) Urine Ketones Urine Occult Blood Urine Nitrite Urine Bilirubin Urine Urobilinogen Ur Leukocyte Esterase Urine RBC Urine WBC Ur Squamous Epith Cells Urine Bacteria Urine Mucus Fld Polynuclear WBCs # Fld Polynuclear WBCs % Fluid Mononuclear WBCs Fld Mononuclear WBCs % CSF Appearance CSF Color CSF WBC CSF RBC CSF Cell Count Tube # CSF Total Cell Counted CSF Comment CSF Glucose CSF Total Protein 07/02/18 07/02/18 07/03/18 22:44 23:45 01:20 WBC RBC Hgb Hct MCV MCH MCHC RDW RDW Differential Plt Count MPV Immature Gran % (Auto) Neut % (Auto) Lymph % (Auto) [place] % (Auto) Eos % (Auto) Baso % (Auto) Absolute Neuts (auto) Absolute Lymphs (auto) Total Counted Differential Comment Diff Path Review Toxic Granulation Platelet Estimate Anisocytosis Macrocytosis PT INR APTT Sodium Potassium Chloride Carbon Dioxide Anion Gap BUN Creatinine Estim Creat Clear Calc Est GFR (MDRD) Af Amer Est GFR (MDRD) Non-Af BUN/Creatinine Ratio Glucose Lactic Acid 1.9 Calcium Total Bilirubin AST ALT Alkaline Phosphatase Total Creatine Kinase Total Protein Albumin Globulin Albumin/Globulin Ratio TSH Urine Color Yellow Urine Clarity Sl. Cloudy Urine pH 6.5 Ur Specific [place] 1.010 Urine Protein 100 H Urine Glucose (UA) Normal Urine Ketones Negative Urine Occult Blood 250 H Urine Nitrite Positive H Urine Bilirubin Negative Urine Urobilinogen 8 H Ur Leukocyte Esterase 500 H Urine RBC 5-10 SEEN Urine WBC 50-100 SEEN Ur Squamous Epith Cells 0-5 SEEN Urine Bacteria 2+ Urine Mucus 0 SEEN Fld Polynuclear WBCs # Fld Polynuclear WBCs % Fluid Mononuclear WBCs Fld Mononuclear WBCs % CSF Appearance CSF Color CSF WBC CSF RBC CSF Cell Count Tube # CSF Total Cell Counted CSF Comment CSF Glucose 65 CSF Total Protein 07/03/18 07/03/18 07/03/18 01:20 01:20 03:58 WBC 15.0 H RBC 4.07 L Hgb 12.7 Hct 37.4 MCV 91.9 MCH 31.2 MCHC 34.0 RDW 12.8 RDW Differential 43.1 Plt Count 278 MPV 9.8 Immature Gran % (Auto) Neut % (Auto) Lymph % (Auto) [place] % (Auto) Eos % (Auto) Baso % (Auto) Absolute Neuts (auto) Absolute Lymphs (auto) Total Counted Differential Comment Diff Path Review Toxic Granulation Platelet Estimate Anisocytosis Macrocytosis PT INR APTT Sodium Potassium Chloride Carbon Dioxide Anion Gap BUN Creatinine Estim Creat Clear Calc Est GFR (MDRD) Af Amer Est GFR (MDRD) Non-Af BUN/Creatinine Ratio Glucose Lactic Acid Calcium Total Bilirubin AST ALT Alkaline Phosphatase Total Creatine Kinase Total Protein Albumin Globulin Albumin/Globulin Ratio TSH Urine Color Urine Clarity Urine pH Ur Specific [place] Urine Protein Urine Glucose (UA) Urine Ketones Urine Occult Blood Urine Nitrite Urine Bilirubin Urine Urobilinogen Ur Leukocyte Esterase Urine RBC Urine WBC Ur Squamous Epith Cells Urine Bacteria Urine Mucus Fld Polynuclear WBCs # 0.000 Fld Polynuclear WBCs % 0.0 Fluid Mononuclear WBCs 0.001 Fld Mononuclear WBCs % 100.0 CSF Appearance CLEAR CSF Color COLORLESS CSF WBC 0.001 H CSF RBC 0 CSF Cell Count Tube # 4 CSF Total Cell Counted 0.001 H CSF Comment Reviewed CSF Glucose CSF Total Protein 40.0 07/03/18 07/04/18 03:58 05:10 WBC RBC Hgb Hct MCV MCH MCHC RDW RDW Differential Plt Count MPV Immature Gran % (Auto) Neut % (Auto) Lymph % (Auto) [place] % (Auto) Eos % (Auto) Baso % (Auto) Absolute Neuts (auto) Absolute Lymphs (auto) Total Counted Differential Comment Diff Path Review Toxic Granulation Platelet Estimate Anisocytosis Macrocytosis PT INR APTT Sodium 135 L 142 Potassium 3.3 L 3.6 Chloride 99 109 H Carbon Dioxide 27.0 25.0 Anion Gap 9 8 BUN 14 16 Creatinine 1.16 H 0.87 Estim Creat Clear Calc 54.86 73.14 Est GFR (MDRD) Af Amer 67 93 Est GFR (MDRD) Non-Af 55 L 77 BUN/Creatinine Ratio 12.1 18.5 Glucose 97 90 Lactic Acid Calcium 7.6 L 7.5 L Total Bilirubin AST ALT Alkaline Phosphatase Total Creatine Kinase Total Protein Albumin Globulin Albumin/Globulin Ratio TSH Urine Color Urine Clarity Urine pH Ur Specific [place] Urine Protein Urine Glucose (UA) Urine Ketones Urine Occult Blood Urine Nitrite Urine Bilirubin Urine Urobilinogen Ur Leukocyte Esterase Urine RBC Urine WBC Ur Squamous Epith Cells Urine Bacteria Urine Mucus Fld Polynuclear WBCs # Fld Polynuclear WBCs % Fluid Mononuclear WBCs Fld Mononuclear WBCs % CSF Appearance CSF Color CSF WBC CSF RBC CSF Cell Count Tube # CSF Total Cell Counted CSF Comment CSF Glucose CSF Total Protein Microbiology 07/03/18 00:18 Blood Culture (Wb) - Venous Blood Culture - Preliminary 07/03/18 01:20 Csf, Spinal Fluid Gram Stain - Final 07/02/18 23:45 Blood Culture (Wb) - Anticubital Right Blood Culture - Preliminary 07/02/18 22:44 Urine, Clean Catch Urine Culture - Preliminary Presumptive E. coli 07/03/18 01:20 Urine, Clean Catch Streptococcus pneumoniae Antigen (M - Final Clinical Impression(s) from Imaging Studies Head CTA 07/02/18 22:59 IMPRESSION: Normal [place] without a demonstrated aneurysm or hemodynamically significant stenosis. Electronically Signed: Lane Mendez MD at 1:19 EST , Service support , Neck CTA 07/02/18 22:59 IMPRESSION: Normal bilateral cervical carotid and vertebral arteries. Electronically Signed: Lane Mendez MD at 1:26 EST , Service support , Chest X-Ray 07/02/18 23:05 IMPRESSION: Normal x-ray examination of the chest. Electronically Signed: Wan Bryant MD at 23:23 EST , Service support , Medical Necessity - Tobacco Use Smoking Status: Current every day smoker Assessment/Plan All Active Problems Back pain (Acute) Headache (Acute) Urinary frequency (Acute) RECOMMENDATIONS: 1. Obtain repeat blood cultures this morning. 2. Continue antibiotics 3. Continue Tylenol for pain. 4. Discontinue supplemental IV fluids, as the patient is tolerating p.o. intake. 5. Continue Lovenox for DVT prophylaxis. 6. Encourage incentive spirometer use while in bed and mobilize patient as tolerated. IMPRESSIONS: 1. Sepsis secondary to gram-negative cystitis/bacteremia Improving. The patient presented with symptoms concerning for urinary tract infection with urinalysis consistent with potential infectious etiology. Continue ceftriaxone, pending finalized infectious workup. The patient supplemental IV fluids can be discontinued from my perspective, as she is tolerating p.o. intake. The patient remains hemodynamically stable. 2. Nonspecific headache Low clinical index suspicion for underlying meningitis. LP was completed in the emergency department but no organisms were identified on Gram stain. Tylenol can be utilized as needed for continued headache pain. 3. Acute kidney injury Resolved. Likely prerenal in etiology. Anticipate improvement with volume expansion. Urine output remains appropriate. No indication for renal replacement therapy at this time. 4. Tobacco dependency Smoking cessation is advisable. Nicotine replacement therapy can be offered while admitted to the hospital. This note was generated with [employer] dictation software. It may contain incorrect words, spelling, and punctuation that were not noted in checking the note before signing. DISPOSITION: The patient is medically stable for transfer out of the intensive care unit. Code Visit Inpatient E&M: 23268 Subs Hosp L3
--- NOTE | 2018-07-04 08:22 | PCM.PN.HOSP ---
Patient Problems: Active and Suspected Problems Back pain (Acute) Headache (Acute) Urinary frequency (Acute) Subjective: Patient is a 38-year-old lady who presented with progressive generalized weakness associated with headache and muscle spasms. Patient underwent extensive workup including lumbar puncture which was negative for meningitis. Her urinalysis came back positive for acute cystitis started on broad-spectrum antibiotic therapy and admitted for subsequent management Urine culture so far positive for E. coli final sensitivities and identification pending. Patient seen still remains tachycardic Objective: GENERAL: cooperative HEENT: Atraumatic; moist oral mucosa EYES; Anicteric, Normal Conjunctiva NECK; supple, normal thyroid, no distended JVD. RESPIRATORY: Diminished to auscultation bilaterally, CARDIOVASCULAR: Regular S1 S2, tachycardic GI: soft, non-tender, normoactive bowel sounds, : No Renal angle tenderness; EXTREMITIES: No edema, no clubbing, no cyanosis. MUSCULOSKELETAL: No Joint Tenderness; no muscle waisting NEURO: Awake; no lateralizing signs. SKIN: No Rash PSYCH; Normal affect Vitals/I&O's: Vital Signs Temp Pulse Resp BP Pulse Ox 98.6 F 119 H 21 H 102/67 99 07/04/18 08:00 07/04/18 08:00 07/04/18 08:00 07/04/18 08:00 07/04/18 08:00 Oxygen Flow Rate (L/min) 2 Oxygen Delivery Method Room Air Weight: 59.1 kg Body Mass Index (BMI) 18.0 Intake and Output for Last 24 Hours 07/02/18 07/03/18 07/04/18 23:59 23:59 23:59 Intake Total 6972 / 6972 2618 / 2618 Output Total 2450 / 2450 2600 / 2600 Balance 4522 / 4522 Microbiology Past 72 Hours 07/03/18 00:18 Blood Culture (Wb) - Venous Blood Culture - Preliminary 07/03/18 01:20 Csf, Spinal Fluid Gram Stain - Final 07/02/18 23:45 Blood Culture (Wb) - Anticubital Right Blood Culture - Preliminary 07/02/18 22:44 Urine, Clean Catch Urine Culture - Preliminary Presumptive E. coli 07/03/18 01:20 Urine, Clean Catch Streptococcus pneumoniae Antigen (M - Final Laboratory Results 07/02/18 22:01: Diff Path Review Reviewed 07/03/18 01:20: CSF Comment Reviewed 07/04/18 05:10: Sodium 142, Potassium 3.6, Chloride 109 H, Carbon Dioxide 25.0, Anion Gap 8, BUN 16, Creatinine 0.87, Estim Creat Clear Calc 73.14, Est GFR (MDRD) Af Amer 93, Est GFR (MDRD) Non-Af 77, BUN/Creatinine Ratio 18.5, Glucose 90, Calcium 7.5 L Current Medications Acetaminophen (Tylenol) 650 mg PO Q4H PRN PRN PRN Reason: pain/fever Last Admin: 07/04/18 06:01 Dose: 650 mg Al Hydroxide/Mg Hydroxide (Mylanta Ii) 30 ml PO Q6H PRN PRN PRN Reason: Gastric burning Enoxaparin Sodium (Lovenox) 40 mg SC DAILY@1000 [facility] Last Admin: 07/03/18 09:25 Dose: 40 mg Sodium Chloride () 1,000 mls @ 150 mls/hr IV .[id number] [facility] Last Admin: 07/04/18 06:03 Dose: Not Given Ceftriaxone Sodium 2 gm/ (Sodium Chloride) 50 mls @ 100 mls/hr IV Q24@2200 [facility] Last Admin: 07/03/18 21:18 Dose: 100 mls/hr Sodium Chloride () 250 mls @ 15 mls/hr IV .[id number] PRN PRN Reason: SALINE FLUSH Magnesium Hydroxide (Milk Of Magnesia) 30 ml PO DAILY PRN PRN PRN Reason: Constipation Nutritional Formula (Lactose Free) (Ensure Enlive) 120 ml PO 4X/DAY [facility] Last Admin: 07/03/18 21:18 Dose: 120 ml Ondansetron HCl (Zofran) 4 mg IV Q8H PRN PRN PRN Reason: Nausea Promethazine HCl (Phenergan) 12.5 mg IV Q6H PRN PRN PRN Reason: NAUSEA/VOMITING Sodium Chloride () 5 - 30 ml IV UD PRN PRN Reason: SALINE FLUSH Last Admin: 07/04/18 06:50 Dose: 20 ml Zolpidem Tartrate (Ambien (Generic)) 5 mg PO QHS PRN PRN PRN Reason: INSOMNIA Medical Necessity - Tobacco Use Smoking Status: Current every day smoker Assessment/Plan All Active Problems Back pain (Acute) Headache (Acute) Urinary frequency (Acute) Patient is a 38-year-old lady who presented with progressive generalized weakness associated with headache and muscle spasms. Patient underwent extensive workup including lumbar puncture which was negative for meningitis. Her urinalysis came back positive for acute cystitis started on broad-spectrum antibiotic therapy and admitted for subsequent management 1. Sepsis secondary to acute cystitis with E. coli; he was started on Rocephin and admission urine culture so far positive for E. coli awaiting sensitivities prior to adjustment of antibiotic therapy 2. Headache: Lumbar puncture came back negative 3. Hypokalemia corrected per protocol 4. Tobacco dependence counseled on cessation, offered nicotine patch for tobacco cravings 5. DVT prophylaxis low risk did encourage early ambulation 6. Tachycardia possibly related to patient's underlying infection however order d-dimer and if possible would like to rule out VTE with CTA of the chest Microbiology 07/03/18 00:18 Blood Culture (Wb) - Venous Blood Culture - Preliminary 07/03/18 01:20 Csf, Spinal Fluid Gram Stain - Final 07/02/18 23:45 Blood Culture (Wb) - Anticubital Right Blood Culture - Preliminary 07/02/18 22:44 Urine, Clean Catch Urine Culture - Preliminary Presumptive E. coli 07/03/18 01:20 Urine, Clean Catch Streptococcus pneumoniae Antigen (M - Final Clinical Impression(s) from Imaging Studies Head CTA 07/02/18 22:59 IMPRESSION: Normal [place] without a demonstrated aneurysm or hemodynamically significant stenosis. Electronically Signed: Lane Mendez MD at 1:19 EST , Service support , Neck CTA 07/02/18 22:59 IMPRESSION: Normal bilateral cervical carotid and vertebral arteries. Electronically Signed: Lane Mendez MD at 1:26 EST , Service support , Chest X-Ray 07/02/18 23:05 IMPRESSION: Normal x-ray examination of the chest. Electronically Signed: Wan Bryant MD at 23:23 EST , Service support , Code Visit Inpatient E&M: 96916 Subs Hosp L3
--- NOTE | 2018-07-04 08:27 | PN_ITS ---
Patient Problems: Active and Suspected Problems Back pain (Acute) Headache (Acute) Urinary frequency (Acute) Subjective: Patient is a 38-year-old lady who presented with progressive generalized weakness associated with headache and muscle spasms. Patient underwent extensive workup including lumbar puncture which was negative for meningitis. Her urinalysis came back positive for acute cystitis started on broad-spectrum antibiotic therapy and admitted for subsequent management Urine culture so far positive for E. coli final sensitivities and identification pending. Patient seen still remains tachycardic Objective: GENERAL: cooperative HEENT: Atraumatic; moist oral mucosa EYES; Anicteric, Normal Conjunctiva NECK; supple, normal thyroid, no distended JVD. RESPIRATORY: Diminished to auscultation bilaterally, CARDIOVASCULAR: Regular S1 S2, tachycardic GI: soft, non-tender, normoactive bowel sounds, : No Renal angle tenderness; EXTREMITIES: No edema, no clubbing, no cyanosis. MUSCULOSKELETAL: No Joint Tenderness; no muscle waisting NEURO: Awake; no lateralizing signs. SKIN: No Rash PSYCH; Normal affect Vitals/I&O's: Vital Signs Temp Pulse Resp BP Pulse Ox 98.6 F 119 H 21 H 102/67 99 07/04/18 08:00 07/04/18 08:00 07/04/18 08:00 07/04/18 08:00 07/04/18 08:00 Oxygen Flow Rate (L/min) 2 Oxygen Delivery Method Room Air Weight: 59.1 kg Body Mass Index (BMI) 18.0 Intake and Output for Last 24 Hours 07/02/18 07/03/18 07/04/18 23:59 23:59 23:59 Intake Total 6972 / 6972 2618 / 2618 Output Total 2450 / 2450 2600 / 2600 Balance 4522 / 4522 Microbiology Past 72 Hours 07/03/18 00:18 Blood Culture (Wb) - Venous Blood Culture - Preliminary 07/03/18 01:20 Csf, Spinal Fluid Gram Stain - Final 07/02/18 23:45 Blood Culture (Wb) - Anticubital Right Blood Culture - Preliminary 07/02/18 22:44 Urine, Clean Catch Urine Culture - Preliminary Presumptive E. coli 07/03/18 01:20 Urine, Clean Catch Streptococcus pneumoniae Antigen (M - Final Laboratory Results 07/02/18 22:01: Diff Path Review Reviewed 07/03/18 01:20: CSF Comment Reviewed 07/04/18 05:10: Sodium 142, Potassium 3.6, Chloride 109 H, Carbon Dioxide 25.0, Anion Gap 8, BUN 16, Creatinine 0.87, Estim Creat Clear Calc 73.14, Est GFR (MDRD) Af Amer 93, Est GFR (MDRD) Non-Af 77, BUN/Creatinine Ratio 18.5, Glucose 90, Calcium 7.5 L Current Medications Acetaminophen (Tylenol) 650 mg PO Q4H PRN PRN PRN Reason: pain/fever Last Admin: 07/04/18 06:01 Dose: 650 mg Al Hydroxide/Mg Hydroxide (Mylanta Ii) 30 ml PO Q6H PRN PRN PRN Reason: Gastric burning Enoxaparin Sodium (Lovenox) 40 mg SC DAILY@1000 [facility] Last Admin: 07/03/18 09:25 Dose: 40 mg Sodium Chloride () 1,000 mls @ 150 mls/hr IV .[id number] [facility] Last Admin: 07/04/18 06:03 Dose: Not Given Ceftriaxone Sodium 2 gm/ (Sodium Chloride) 50 mls @ 100 mls/hr IV Q24@2200 [facility] Last Admin: 07/03/18 21:18 Dose: 100 mls/hr Sodium Chloride () 250 mls @ 15 mls/hr IV .[id number] PRN PRN Reason: SALINE FLUSH Magnesium Hydroxide (Milk Of Magnesia) 30 ml PO DAILY PRN PRN PRN Reason: Constipation Nutritional Formula (Lactose Free) (Ensure Enlive) 120 ml PO 4X/DAY [facility] Last Admin: 07/03/18 21:18 Dose: 120 ml Ondansetron HCl (Zofran) 4 mg IV Q8H PRN PRN PRN Reason: Nausea Promethazine HCl (Phenergan) 12.5 mg IV Q6H PRN PRN PRN Reason: NAUSEA/VOMITING Sodium Chloride () 5 - 30 ml IV UD PRN PRN Reason: SALINE FLUSH Last Admin: 07/04/18 06:50 Dose: 20 ml Zolpidem Tartrate (Ambien (Generic)) 5 mg PO QHS PRN PRN PRN Reason: INSOMNIA Medical Necessity - Tobacco Use Smoking Status: Current every day smoker Assessment/Plan All Active Problems Back pain (Acute) Headache (Acute) Urinary frequency (Acute) Patient is a 38-year-old lady who presented with progressive generalized weakness associated with headache and muscle spasms. Patient underwent extensive workup including lumbar puncture which was negative for meningitis. Her urinalysis came back positive for acute cystitis started on broad-spectrum antibiotic therapy and admitted for subsequent management 1. Sepsis secondary to acute cystitis with E. coli; he was started on Rocephin and admission urine culture so far positive for E. coli awaiting sensitivities prior to adjustment of antibiotic therapy 2. Headache: Lumbar puncture came back negative 3. Hypokalemia corrected per protocol 4. Tobacco dependence counseled on cessation, offered nicotine patch for tobacco cravings 5. DVT prophylaxis low risk did encourage early ambulation 6. Tachycardia possibly related to patient's underlying infection however order d-dimer and if possible would like to rule out VTE with CTA of the chest Microbiology 07/03/18 00:18 Blood Culture (Wb) - Venous Blood Culture - Preliminary 07/03/18 01:20 Csf, Spinal Fluid Gram Stain - Final 07/02/18 23:45 Blood Culture (Wb) - Anticubital Right Blood Culture - Preliminary 07/02/18 22:44 Urine, Clean Catch Urine Culture - Preliminary Presumptive E. coli 07/03/18 01:20 Urine, Clean Catch Streptococcus pneumoniae Antigen (M - Final Clinical Impression(s) from Imaging Studies Head CTA 07/02/18 22:59 IMPRESSION: Normal [place] without a demonstrated aneurysm or hemodynamically significant stenosis. Electronically Signed: Lane Mendez MD at 1:19 EST , Service support , Neck CTA 07/02/18 22:59 IMPRESSION: Normal bilateral cervical carotid and vertebral arteries. Electronically Signed: Lane Mendez MD at 1:26 EST , Service support , Chest X-Ray 07/02/18 23:05 IMPRESSION: Normal x-ray examination of the chest. Electronically Signed: Wan Bryant MD at 23:23 EST , Service support , Code Visit Inpatient E&M: [id number] Subs Hosp L3
[2018-07-04 09:23] LABS: D-Dimer Quantitative (DVT/PE) 13.57 FEU/ug/m (0.27-0.49)
[2018-07-04] MEDS: Enoxaparin 40 MG/0.4 ML Syringe SC (09:37)
--- NOTE | 2018-07-04 09:59 | CASEMGMT ---
SW met w/pt, gave pt information regarding hot meals, food pantries, and [employer]. Pt states she goes to [employer] weekly for food. Pt denied any other needs, SW remains available should any other needs arise. OSCAR Leonard, MEDICAL CLAIMS EXAMINER
--- NOTE | 2018-07-04 10:28 | CT_ITS ---
STUDY: CTA CHEST REASON FOR EXAM: Female, 38 years old. Elevated d-dimer. Sepsis. RADIATION DOSAGE (If Supplied By Facility): CTDIvol = ( 4.20 ) mGy, DLP = ( 148.70 ) mGycm TECHNIQUE: The examination was performed with the intravenous administration of 75ML ml of Isovue 370 contrast material. Post-processing of the angiographic images was performed, with multiplanar reformation and 3D reconstruction. Individualized dose optimization techniques were used for this CT. COMPARISON: None. FINDINGS: Normal enhancement of the main pulmonary artery and right and left pulmonary arteries. Normal enhancement of the bilateral peripheral pulmonary arteries. There is no demonstrated pulmonary embolism. Normal thoracic aorta and visualized great vessels. There is no demonstrated aortic dissection. Normal heart and pericardium. Normal mediastinum. Normal hilar regions. Normal visualized trachea and bronchi. The lungs are well expanded. There are small bilateral pleural effusions with bibasilar atelectasis Normal chest wall structures. Normal osseous structures. Normal visualized upper abdomen. CT/CTA Chest W/WO Contrast IMPRESSION: Small bilateral pleural effusions with bibasilar atelectasis. Electronically Signed: Salty Dominguez MD at 11:33 EST Tel [phone], Service support ,
[2018-07-05 03:48] VITALS: O2SAT 96
[2018-07-05] MEDS: Acetaminophen 325 MG Tablet 650 MG PO ×3 (04:01→20:49)
[2018-07-05 04:05] VITALS: BP 107/77; PULSE 80; RESP 18; TEMP 36.5; O2SAT 99
[2018-07-05] MEDS: DiphenhydrAMINE 50 MG/ML Syringe 25 MG IV (06:10)
[2018-07-05] MEDS: 0.9% NaCl Peripheral Flush Adult/Peds IV ×2 (06:10→06:44)
[2018-07-05 06:29] LABS: Anion Gap 8 (5-15); BUN 11 mg/dL (7-18); BUN/Creat Ratio 13.9 RATIO (10-20); Calcium,Total 7.6 mg/dL (8.5-10.1); Chloride 111 mmol/L (98-107); Creatinine, Serum 0.79 mg/dL (0.55-1.02); EST Glomerular Filtration Rate 85 mL/min (>60); Est Glom Filt Rate - Afr Amer 103 mL/min (>60); Estimated Creatinine Clearance 88.62 ml/min; Glucose 115 mg/dL (74-106); Potassium 2.9 mmol/L (3.5-5.1); Sodium Level 144 mmol/L (136-145)
[2018-07-05] MEDS: Ketorolac 15 MG/ML Vial IV (06:44)
--- NOTE | 2018-07-05 06:53 | PCM.PROGNOTE ---
Patient Problems: Active and Suspected Problems Back pain (Acute) Headache (Acute) Urinary frequency (Acute) Subjective: The patient was seen and examined at the bedside this morning. Events from the last 24 hours have been reviewed. The patient is currently afebrile, hemodynamically stable and maintaining appropriate oxygen saturations on room air. The patient does report that she is feeling better. She denies shortness of breath or chest pain. Objective: The patient's most recent lab work, culture data and imaging studies have all been personally reviewed. Urine culture dated July 02 revealed presumptive E. coli. Blood cultures were also positive for gram-negative's. CSF cultures have shown no growth to date. - Physical Exam General: Alert, Cooperative, No apparent distress HEENT: Atraumatic, PERRLA, Normocephalic Oral: No Gingival or Mucosal Lesions/ Ulcerations Neck: Supple, No Nodes, Trachea Midline Lungs: No rhonchi, No wheeze, No rales, Diminished Cardiovascular: Regular rate, Regular Rhythm, Normal S1, Normal S2, No murmurs Abdomen: Bowel Sounds Present, Soft, Non Tender Extremities: No clubbing, No cyanosis, No edema Skin: - - No significant change from previous. Musculoskeletal: No Tenderness to Palpation of Joints or Extremities, No Muscle Wasting Lymphatic: No Cervical, Supraclavicular, or Inguinal Adenopathy Neurological: Cranial nerves II-XII grossly intact, Neuro grossly intact Psych/Mental Status: Alert and oriented to time, place, person, mood and affect Vital Signs Temp Pulse Resp BP Pulse Ox 36.5 C L 80 18 107/77 99 07/05/18 04:05 07/05/18 04:05 07/05/18 04:05 07/05/18 04:05 07/05/18 04:05 Oxygen Flow Rate (L/min) 2 Oxygen Delivery Method Room Air Weight: 130 lb 11.746 oz Body Mass Index (BMI) 18.0 Intake and Output for Last 24 Hours 07/03/18 07/04/18 07/05/18 23:59 23:59 23:59 Intake Total 6972 / 6972 4065 / 4065 509.3 / 509.3 Output Total 2450 / 2450 3900 / 3900 Balance 4522 / 4522 165 / 165 509.3 / 509.3 Microbiology Past 72 Hours 07/03/18 01:20 Gram Stain - Final Csf, Spinal Fluid CSF Culture - Preliminary No growth in 24 hours. Final to follow. 07/03/18 00:18 Blood Culture - Preliminary Blood Culture (Wb) - Venous GNR lactose nurse aide evaluator 07/02/18 23:45 Blood Culture - Preliminary Blood Culture (Wb) - Anticubital Right GNR lactose nurse aide evaluator 07/02/18 22:44 Urine Culture - Final Urine, Clean Catch Presumptive E. coli 07/03/18 01:20 Streptococcus pneumoniae Antigen (M - Final Urine, Clean Catch Laboratory Tests Past 24 Hrs 07/04/18 07/05/18 08:43 05:40 D-Dimer Quant (PE/DVT) 13.57 H* Sodium 144 Potassium 2.9 L Chloride 111 H Carbon Dioxide 25.0 Anion Gap 8 BUN 11 Creatinine 0.79 Estim Creat Clear Calc 88.62 Est GFR (MDRD) Af Amer 103 Est GFR (MDRD) Non-Af 85 BUN/Creatinine Ratio 13.9 Glucose 115 H Calcium 7.6 L Clinical Impression(s) from Imaging Studies Head CTA 07/02/18 22:59 IMPRESSION: Normal [place] without a demonstrated aneurysm or hemodynamically significant stenosis. Electronically Signed: Lane Mendez MD at 1:19 EST , Service support , Neck CTA 07/02/18 22:59 IMPRESSION: Normal bilateral cervical carotid and vertebral arteries. Electronically Signed: Lane Mendez MD at 1:26 EST , Service support , Chest X-Ray 07/02/18 23:05 IMPRESSION: Normal x-ray examination of the chest. Electronically Signed: Wan Bryant MD at 23:23 EST , Service support , Chest CTA 07/04/18 10:28 IMPRESSION: Small bilateral pleural effusions with bibasilar atelectasis. Electronically Signed: Salty Dominguez MD at 11:33 EST Tel [phone], Service support , Medical Necessity - Tobacco Use Smoking Status: Current every day smoker Assessment/Plan All Active Problems Back pain (Acute) Headache (Acute) Urinary frequency (Acute) RECOMMENDATIONS: 1. Potassium repletion 2. Continue antibiotics 3. Continue Tylenol for pain. 4. Continue Lovenox for DVT prophylaxis. 5. Encourage incentive spirometer use while in bed and mobilize patient as tolerated. IMPRESSIONS: 1. Sepsis secondary to gram-negative cystitis/bacteremia Improved. The patient presented with symptoms concerning for urinary tract infection with urinalysis consistent with potential infectious etiology. Subsequent workup did reveal the presence of gram-negative cystitis and bacteremia. The patient has been on appropriate antibiotics and has improved clinically. She remains hemodynamically stable and afebrile. Follow-up blood cultures have not shown any growth to date. 2. Nonspecific headache Low clinical index suspicion for underlying meningitis. LP was completed in the emergency department but no organisms were identified on Gram stain. Tylenol can be utilized as needed for continued headache pain. 3. Acute kidney injury Resolved. Likely prerenal in etiology. Anticipate improvement with volume expansion. Urine output remains appropriate. No indication for renal replacement therapy at this time. 4. Hypokalemia Electrolyte repletion underway. Recheck levels in the morning. 5. Tobacco dependency Smoking cessation is advisable. Nicotine replacement therapy can be offered while admitted to the hospital. This note was generated with [employer] dictation software. It may contain incorrect words, spelling, and punctuation that were not noted in checking the note before signing. DISPOSITION: Given the lack of further ICU/pulmonary needs, will sign off. Please call with any additional questions. Code Visit Inpatient E&M: [id number] Subs Hosp L2
--- NOTE | 2018-07-05 06:56 | PN_ITS ---
Patient Problems: Active and Suspected Problems Back pain (Acute) Headache (Acute) Urinary frequency (Acute) Subjective: The patient was seen and examined at the bedside this morning. Events from the last 24 hours have been reviewed. The patient is currently afebrile, hemodynamically stable and maintaining appropriate oxygen saturations on room air. The patient does report that she is feeling better. She denies shortness of breath or chest pain. Objective: The patient's most recent lab work, culture data and imaging studies have all been personally reviewed. Urine culture dated July 02 revealed presumptive E. coli. Blood cultures were also positive for gram-negative's. CSF cultures have shown no growth to date. - Physical Exam General: Alert, Cooperative, No apparent distress HEENT: Atraumatic, PERRLA, Normocephalic Oral: No Gingival or Mucosal Lesions/ Ulcerations Neck: Supple, No Nodes, Trachea Midline Lungs: No rhonchi, No wheeze, No rales, Diminished Cardiovascular: Regular rate, Regular Rhythm, Normal S1, Normal S2, No murmurs Abdomen: Bowel Sounds Present, Soft, Non Tender Extremities: No clubbing, No cyanosis, No edema Skin: - - No significant change from previous. Musculoskeletal: No Tenderness to Palpation of Joints or Extremities, No Muscle Wasting Lymphatic: No Cervical, Supraclavicular, or Inguinal Adenopathy Neurological: Cranial nerves II-XII grossly intact, Neuro grossly intact Psych/Mental Status: Alert and oriented to time, place, person, mood and affect Vital Signs Temp Pulse Resp BP Pulse Ox 36.5 C L 80 18 107/77 99 07/05/18 04:05 07/05/18 04:05 07/05/18 04:05 07/05/18 04:05 07/05/18 04:05 Oxygen Flow Rate (L/min) 2 Oxygen Delivery Method Room Air Weight: 130 lb 11.746 oz Body Mass Index (BMI) 18.0 Intake and Output for Last 24 Hours 07/03/18 07/04/18 07/05/18 23:59 23:59 23:59 Intake Total 6972 / 6972 4065 / 4065 509.3 / 509.3 Output Total 2450 / 2450 3900 / 3900 Balance 4522 / 4522 165 / 165 509.3 / 509.3 Microbiology Past 72 Hours 07/03/18 01:20 Gram Stain - Final Csf, Spinal Fluid CSF Culture - Preliminary No growth in 24 hours. Final to follow. 07/03/18 00:18 Blood Culture - Preliminary Blood Culture (Wb) - Venous GNR lactose embedded software development engineer 07/02/18 23:45 Blood Culture - Preliminary Blood Culture (Wb) - Anticubital Right GNR lactose embedded software development engineer 07/02/18 22:44 Urine Culture - Final Urine, Clean Catch Presumptive E. coli 07/03/18 01:20 Streptococcus pneumoniae Antigen (M - Final Urine, Clean Catch Laboratory Tests Past 24 Hrs 07/04/18 07/05/18 08:43 05:40 D-Dimer Quant (PE/DVT) 13.57 H* Sodium 144 Potassium 2.9 L Chloride 111 H Carbon Dioxide 25.0 Anion Gap 8 BUN 11 Creatinine 0.79 Estim Creat Clear Calc 88.62 Est GFR (MDRD) Af Amer 103 Est GFR (MDRD) Non-Af 85 BUN/Creatinine Ratio 13.9 Glucose 115 H Calcium 7.6 L Clinical Impression(s) from Imaging Studies Head CTA 07/02/18 22:59 IMPRESSION: Normal [place] without a demonstrated aneurysm or hemodynamically significant stenosis. Electronically Signed: Lane Mendez MD at 1:19 EST , Service support , Neck CTA 07/02/18 22:59 IMPRESSION: Normal bilateral cervical carotid and vertebral arteries. Electronically Signed: Lane Mendez MD at 1:26 EST , Service support , Chest X-Ray 07/02/18 23:05 IMPRESSION: Normal x-ray examination of the chest. Electronically Signed: Wan Bryant MD at 23:23 EST , Service support , Chest CTA 07/04/18 10:28 IMPRESSION: Small bilateral pleural effusions with bibasilar atelectasis. Electronically Signed: Salty Dominguez MD at 11:33 EST Tel [phone], Service support , Medical Necessity - Tobacco Use Smoking Status: Current every day smoker Assessment/Plan All Active Problems Back pain (Acute) Headache (Acute) Urinary frequency (Acute) RECOMMENDATIONS: 1. Potassium repletion 2. Continue antibiotics 3. Continue Tylenol for pain. 4. Continue Lovenox for DVT prophylaxis. 5. Encourage incentive spirometer use while in bed and mobilize patient as tolerated. IMPRESSIONS: 1. Sepsis secondary to gram-negative cystitis/bacteremia Improved. The patient presented with symptoms concerning for urinary tract infection with urinalysis consistent with potential infectious etiology. Subsequent workup did reveal the presence of gram-negative cystitis and bacteremia. The patient has been on appropriate antibiotics and has improved clinically. She remains hemodynamically stable and afebrile. Follow-up blood cultures have not shown any growth to date. 2. Nonspecific headache Low clinical index suspicion for underlying meningitis. LP was completed in the emergency department but no organisms were identified on Gram stain. Tylenol can be utilized as needed for continued headache pain. 3. Acute kidney injury Resolved. Likely prerenal in etiology. Anticipate improvement with volume expansion. Urine output remains appropriate. No indication for renal replacement therapy at this time. 4. Hypokalemia Electrolyte repletion underway. Recheck levels in the morning. 5. Tobacco dependency Smoking cessation is advisable. Nicotine replacement therapy can be offered while admitted to the hospital. This note was generated with [employer] dictation software. It may contain incorrect words, spelling, and punctuation that were not noted in checking the note before signing. DISPOSITION: Given the lack of further ICU/pulmonary needs, will sign off. Please call with any additional questions. Code Visit Inpatient E&M: [id number] Subs Hosp L2
[2018-07-05 07:15] VITALS: O2SAT 99
--- NOTE | 2018-07-05 07:47 | PCM.PN.HOSP ---
Patient Problems: Active and Suspected Problems Back pain (Acute) Headache (Acute) Urinary frequency (Acute) Subjective: Patient was transferred from intensive care unit to regular nursing floor on 07/04/2018: Patient diagnostic data review significant for low potassium level of 2.9 aggressive replacement initiated. Patient blood cultures is also growing gram-negative rods final identification and sensitivities pending Objective: GENERAL: cooperative HEENT: Atraumatic; moist oral mucosa EYES; Anicteric, Normal Conjunctiva NECK; supple, normal thyroid, no distended JVD. RESPIRATORY: Diminished to auscultation bilaterally, CARDIOVASCULAR: Regular S1 S2, tachycardic GI: soft, non-tender, normoactive bowel sounds, : No Renal angle tenderness; EXTREMITIES: No edema, no clubbing, no cyanosis. MUSCULOSKELETAL: No Joint Tenderness; no muscle waisting NEURO: Awake; no lateralizing signs. SKIN: No Rash PSYCH; Normal affect Vitals/I&O's: Vital Signs Temp Pulse Resp BP Pulse Ox 97.7 F L 80 18 107/77 99 07/05/18 04:05 07/05/18 04:05 07/05/18 04:05 07/05/18 04:05 07/05/18 04:05 Oxygen Flow Rate (L/min) 2 Oxygen Delivery Method Room Air Weight: 59.3 kg Body Mass Index (BMI) 18.0 Intake and Output for Last 24 Hours 07/03/18 07/04/18 07/05/18 23:59 23:59 23:59 Intake Total 6972 / 6972 4065 / 4065 509.3 / 509.3 Output Total 2450 / 2450 3900 / 3900 Balance 4522 / 4522 165 / 165 509.3 / 509.3 Microbiology Past 72 Hours 07/03/18 01:20 Csf, Spinal Fluid Gram Stain - Final 07/03/18 01:20 Csf, Spinal Fluid CSF Culture - Preliminary No growth in 24 hours. Final to follow. 07/03/18 00:18 Blood Culture (Wb) - Venous Blood Culture - Preliminary GNR lactose freelance copywriter 07/02/18 23:45 Blood Culture (Wb) - Anticubital Right Blood Culture - Preliminary GNR lactose freelance copywriter 07/02/18 22:44 Urine, Clean Catch Urine Culture - Final Presumptive E. coli 07/03/18 01:20 Urine, Clean Catch Streptococcus pneumoniae Antigen (M - Final Laboratory Results 07/04/18 08:43: D-Dimer Quant (PE/DVT) 13.57 H* 07/05/18 05:40: Sodium 144, Potassium 2.9 L, Chloride 111 H, Carbon Dioxide 25.0, Anion Gap 8, BUN 11, Creatinine 0.79, Estim Creat Clear Calc 88.62, Est GFR (MDRD) Af Amer 103, Est GFR (MDRD) Non-Af 85, BUN/Creatinine Ratio 13.9, Glucose 115 H, Calcium 7.6 L Current Medications Acetaminophen (Tylenol) 650 mg PO Q4H PRN PRN PRN Reason: pain/fever Last Admin: 07/05/18 04:01 Dose: 650 mg Al Hydroxide/Mg Hydroxide (Mylanta Ii) 30 ml PO Q6H PRN PRN PRN Reason: Gastric burning Enoxaparin Sodium (Lovenox) 40 mg SC DAILY@1000 [facility] Last Admin: 07/04/18 09:37 Dose: 40 mg Ceftriaxone Sodium 2 gm/ (Sodium Chloride) 50 mls @ 100 mls/hr IV Q24@2200 [facility] Last Admin: 07/04/18 23:20 Dose: 100 mls/hr Sodium Chloride () 250 mls @ 15 mls/hr IV .[id number] PRN PRN Reason: SALINE FLUSH Potassium Chloride 10 meq/ N/A 100 mls @ 100 mls/hr IV Q1H [facility] Stop: 07/05/18 11:44 Ketorolac Tromethamine (Toradol) 15 mg IV Q6H PRN PRN PRN Reason: severe headache Stop: 07/10/18 05:38 Last Admin: 07/05/18 06:44 Dose: 15 mg Magnesium Hydroxide (Milk Of Magnesia) 30 ml PO DAILY PRN PRN PRN Reason: Constipation Nutritional Formula (Lactose Free) (Ensure Enlive) 120 ml PO 4X/DAY [facility] Last Admin: 07/04/18 23:01 Dose: Not Given Ondansetron HCl (Zofran) 4 mg IV Q8H PRN PRN PRN Reason: Nausea Potassium Chloride (K-Dur) 40 meq PO BIDCM [facility] Promethazine HCl (Phenergan) 12.5 mg IV Q6H PRN PRN PRN Reason: NAUSEA/VOMITING Sodium Chloride () 5 - 30 ml IV UD PRN PRN Reason: SALINE FLUSH Last Admin: 07/05/18 06:44 Dose: 10 ml Zolpidem Tartrate (Ambien (Generic)) 5 mg PO QHS PRN PRN PRN Reason: INSOMNIA Medical Necessity - Tobacco Use Smoking Status: Current every day smoker Assessment/Plan All Active Problems Back pain (Acute) Headache (Acute) Urinary frequency (Acute) Patient is a 38-year-old lady who presented with progressive generalized weakness associated with headache and muscle spasms. Patient underwent extensive workup including lumbar puncture which was negative for meningitis. Her urinalysis came back positive for acute cystitis started on broad-spectrum antibiotic therapy and admitted for subsequent management 1. Sepsis secondary to acute cystitis with E. coli; he was started on Rocephin and admission urine culture so far positive for E. coli awaiting sensitivities prior to adjustment of antibiotic therapy patient is however growing 2 out of 2 bottles of blood cultures?gram-negative rods awaiting identification prior to determining with antibiotics to discharge patient home on 2. Severe hypokalemia correction in the initiated via oral and IV route 3. Headache: Lumbar puncture came back negative 3. Hypokalemia corrected per protocol 4. Tobacco dependence counseled on cessation, offered nicotine patch for tobacco cravings 5. DVT prophylaxis low risk did encourage early ambulation 6. Tachycardia possibly related to patient's underlying infection however order d-dimer and if possible would like to rule out VTE with CTA of the chest chest CTA was negative for PE however did demonstrate presence of atelectasis. Microbiology 07/03/18 01:20 Csf, Spinal Fluid Gram Stain - Final 07/03/18 01:20 Csf, Spinal Fluid CSF Culture - Preliminary No growth in 24 hours. Final to follow. 07/03/18 00:18 Blood Culture (Wb) - Venous Blood Culture - Preliminary GNR lactose freelance copywriter 07/02/18 23:45 Blood Culture (Wb) - Anticubital Right Blood Culture - Preliminary GNR lactose freelance copywriter 07/02/18 22:44 Urine, Clean Catch Urine Culture - Final Presumptive E. coli 07/03/18 01:20 Urine, Clean Catch Streptococcus pneumoniae Antigen (M - Final Active Medications Acetaminophen (Tylenol) 650 mg PO Q4H PRN PRN PRN Reason: pain/fever Last Admin: 07/05/18 04:01 Dose: 650 mg Al Hydroxide/Mg Hydroxide (Mylanta Ii) 30 ml PO Q6H PRN PRN PRN Reason: Gastric burning Enoxaparin Sodium (Lovenox) 40 mg SC DAILY@1000 [facility] Last Admin: 07/04/18 09:37 Dose: 40 mg Ceftriaxone Sodium 2 gm/ (Sodium Chloride) 50 mls @ 100 mls/hr IV Q24@2200 [facility] Last Admin: 07/04/18 23:20 Dose: 100 mls/hr Sodium Chloride () 250 mls @ 15 mls/hr IV .[id number] PRN PRN Reason: SALINE FLUSH Potassium Chloride 10 meq/ N/A 100 mls @ 100 mls/hr IV Q1H [facility] Stop: 07/05/18 11:44 Ketorolac Tromethamine (Toradol) 15 mg IV Q6H PRN PRN PRN Reason: severe headache Stop: 07/10/18 05:38 Last Admin: 07/05/18 06:44 Dose: 15 mg Magnesium Hydroxide (Milk Of Magnesia) 30 ml PO DAILY PRN PRN PRN Reason: Constipation Nutritional Formula (Lactose Free) (Ensure Enlive) 120 ml PO 4X/DAY [facility] Last Admin: 07/04/18 23:01 Dose: Not Given Ondansetron HCl (Zofran) 4 mg IV Q8H PRN PRN PRN Reason: Nausea Potassium Chloride (K-Dur) 40 meq PO BIDCM [facility] Promethazine HCl (Phenergan) 12.5 mg IV Q6H PRN PRN PRN Reason: NAUSEA/VOMITING Sodium Chloride () 5 - 30 ml IV UD PRN PRN Reason: SALINE FLUSH Last Admin: 07/05/18 06:44 Dose: 10 ml Zolpidem Tartrate (Ambien (Generic)) 5 mg PO QHS PRN PRN PRN Reason: INSOMNIA Code Visit Inpatient E&M: 22343 [facility] Hosp L3
--- NOTE | 2018-07-05 08:01 | PN_ITS ---
Patient Problems: Active and Suspected Problems Back pain (Acute) Headache (Acute) Urinary frequency (Acute) Subjective: Patient was transferred from intensive care unit to regular nursing floor on 07/04/2018: Patient diagnostic data review significant for low potassium level of 2.9 aggressive replacement initiated. Patient blood cultures is also growing gram- negative rods final identification and sensitivities pending Objective: GENERAL: cooperative HEENT: Atraumatic; moist oral mucosa EYES; Anicteric, Normal Conjunctiva NECK; supple, normal thyroid, no distended JVD. RESPIRATORY: Diminished to auscultation bilaterally, CARDIOVASCULAR: Regular S1 S2, tachycardic GI: soft, non-tender, normoactive bowel sounds, : No Renal angle tenderness; EXTREMITIES: No edema, no clubbing, no cyanosis. MUSCULOSKELETAL: No Joint Tenderness; no muscle waisting NEURO: Awake; no lateralizing signs. SKIN: No Rash PSYCH; Normal affect Vitals/I&O's: Vital Signs Temp Pulse Resp BP Pulse Ox 97.7 F L 80 18 107/77 99 07/05/18 04:05 07/05/18 04:05 07/05/18 04:05 07/05/18 04:05 07/05/18 04:05 Oxygen Flow Rate (L/min) 2 Oxygen Delivery Method Room Air Weight: 59.3 kg Body Mass Index (BMI) 18.0 Intake and Output for Last 24 Hours 07/03/18 07/04/18 07/05/18 23:59 23:59 23:59 Intake Total 6972 / 6972 4065 / 4065 509.3 / 509.3 Output Total 2450 / 2450 3900 / 3900 Balance 4522 / 4522 165 / 165 509.3 / 509.3 Microbiology Past 72 Hours 07/03/18 01:20 Csf, Spinal Fluid Gram Stain - Final 07/03/18 01:20 Csf, Spinal Fluid CSF Culture - Preliminary No growth in 24 hours. Final to follow. 07/03/18 00:18 Blood Culture (Wb) - Venous Blood Culture - Preliminary GNR lactose branding machine tender 07/02/18 23:45 Blood Culture (Wb) - Anticubital Right Blood Culture - Preliminary GNR lactose branding machine tender 07/02/18 22:44 Urine, Clean Catch Urine Culture - Final Presumptive E. coli 07/03/18 01:20 Urine, Clean Catch Streptococcus pneumoniae Antigen (M - Final Laboratory Results 07/04/18 08:43: D-Dimer Quant (PE/DVT) 13.57 H* 07/05/18 05:40: Sodium 144, Potassium 2.9 L, Chloride 111 H, Carbon Dioxide 25.0, Anion Gap 8, BUN 11, Creatinine 0.79, Estim Creat Clear Calc 88.62, Est GFR (MDRD) Af Amer 103, Est GFR (MDRD) Non-Af 85, BUN/Creatinine Ratio 13.9, Glucose 115 H, Calcium 7.6 L Current Medications Acetaminophen (Tylenol) 650 mg PO Q4H PRN PRN PRN Reason: pain/fever Last Admin: 07/05/18 04:01 Dose: 650 mg Al Hydroxide/Mg Hydroxide (Mylanta Ii) 30 ml PO Q6H PRN PRN PRN Reason: Gastric burning Enoxaparin Sodium (Lovenox) 40 mg SC DAILY@1000 [facility] Last Admin: 07/04/18 09:37 Dose: 40 mg Ceftriaxone Sodium 2 gm/ (Sodium Chloride) 50 mls @ 100 mls/hr IV Q24@2200 [facility] Last Admin: 07/04/18 23:20 Dose: 100 mls/hr Sodium Chloride () 250 mls @ 15 mls/hr IV .[id number] PRN PRN Reason: SALINE FLUSH Potassium Chloride 10 meq/ N/A 100 mls @ 100 mls/hr IV Q1H [facility] Stop: 07/05/18 11:44 Ketorolac Tromethamine (Toradol) 15 mg IV Q6H PRN PRN PRN Reason: severe headache Stop: 07/10/18 05:38 Last Admin: 07/05/18 06:44 Dose: 15 mg Magnesium Hydroxide (Milk Of Magnesia) 30 ml PO DAILY PRN PRN PRN Reason: Constipation Nutritional Formula (Lactose Free) (Ensure Enlive) 120 ml PO 4X/DAY [facility] Last Admin: 07/04/18 23:01 Dose: Not Given Ondansetron HCl (Zofran) 4 mg IV Q8H PRN PRN PRN Reason: Nausea Potassium Chloride (K-Dur) 40 meq PO BIDCM [facility] Promethazine HCl (Phenergan) 12.5 mg IV Q6H PRN PRN PRN Reason: NAUSEA/VOMITING Sodium Chloride () 5 - 30 ml IV UD PRN PRN Reason: SALINE FLUSH Last Admin: 07/05/18 06:44 Dose: 10 ml Zolpidem Tartrate (Ambien (Generic)) 5 mg PO QHS PRN PRN PRN Reason: INSOMNIA Medical Necessity - Tobacco Use Smoking Status: Current every day smoker Assessment/Plan All Active Problems Back pain (Acute) Headache (Acute) Urinary frequency (Acute) Patient is a 38-year-old lady who presented with progressive generalized weakness associated with headache and muscle spasms. Patient underwent extensive workup including lumbar puncture which was negative for meningitis. Her urinalysis came back positive for acute cystitis started on broad-spectrum antibiotic therapy and admitted for subsequent management 1. Sepsis secondary to acute cystitis with E. coli; he was started on Rocephin and admission urine culture so far positive for E. coli awaiting sensitivities prior to adjustment of antibiotic therapy patient is however growing 2 out of 2 bottles of blood cultures?gram-negative rods awaiting identification prior to determining with antibiotics to discharge patient home on 2. Severe hypokalemia correction in the initiated via oral and IV route 3. Headache: Lumbar puncture came back negative 3. Hypokalemia corrected per protocol 4. Tobacco dependence counseled on cessation, offered nicotine patch for tobacco cravings 5. DVT prophylaxis low risk did encourage early ambulation 6. Tachycardia possibly related to patient's underlying infection however order d-dimer and if possible would like to rule out VTE with CTA of the chest chest CTA was negative for PE however did demonstrate presence of atelectasis. Microbiology 07/03/18 01:20 Csf, Spinal Fluid Gram Stain - Final 07/03/18 01:20 Csf, Spinal Fluid CSF Culture - Preliminary No growth in 24 hours. Final to follow. 07/03/18 00:18 Blood Culture (Wb) - Venous Blood Culture - Preliminary GNR lactose branding machine tender 07/02/18 23:45 Blood Culture (Wb) - Anticubital Right Blood Culture - Preliminary GNR lactose branding machine tender 07/02/18 22:44 Urine, Clean Catch Urine Culture - Final Presumptive E. coli 07/03/18 01:20 Urine, Clean Catch Streptococcus pneumoniae Antigen (M - Final Active Medications Acetaminophen (Tylenol) 650 mg PO Q4H PRN PRN PRN Reason: pain/fever Last Admin: 07/05/18 04:01 Dose: 650 mg Al Hydroxide/Mg Hydroxide (Mylanta Ii) 30 ml PO Q6H PRN PRN PRN Reason: Gastric burning Enoxaparin Sodium (Lovenox) 40 mg SC DAILY@1000 [facility] Last Admin: 07/04/18 09:37 Dose: 40 mg Ceftriaxone Sodium 2 gm/ (Sodium Chloride) 50 mls @ 100 mls/hr IV Q24@2200 [facility] Last Admin: 07/04/18 23:20 Dose: 100 mls/hr Sodium Chloride () 250 mls @ 15 mls/hr IV .[id number] PRN PRN Reason: SALINE FLUSH Potassium Chloride 10 meq/ N/A 100 mls @ 100 mls/hr IV Q1H [facility] Stop: 07/05/18 11:44 Ketorolac Tromethamine (Toradol) 15 mg IV Q6H PRN PRN PRN Reason: severe headache Stop: 07/10/18 05:38 Last Admin: 07/05/18 06:44 Dose: 15 mg Magnesium Hydroxide (Milk Of Magnesia) 30 ml PO DAILY PRN PRN PRN Reason: Constipation Nutritional Formula (Lactose Free) (Ensure Enlive) 120 ml PO 4X/DAY [facility] Last Admin: 07/04/18 23:01 Dose: Not Given Ondansetron HCl (Zofran) 4 mg IV Q8H PRN PRN PRN Reason: Nausea Potassium Chloride (K-Dur) 40 meq PO BIDCM [facility] Promethazine HCl (Phenergan) 12.5 mg IV Q6H PRN PRN PRN Reason: NAUSEA/VOMITING Sodium Chloride () 5 - 30 ml IV UD PRN PRN Reason: SALINE FLUSH Last Admin: 07/05/18 06:44 Dose: 10 ml Zolpidem Tartrate (Ambien (Generic)) 5 mg PO QHS PRN PRN PRN Reason: INSOMNIA Code Visit Inpatient E&M: [id number] [facility] Hosp L3
[2018-07-05 08:56] VITALS: BP 93/62; PULSE 80; RESP 16; TEMP 36.7; O2SAT 99
[2018-07-05 13:57] VITALS: BP 114/73; PULSE 88; RESP 18; TEMP 36.6; O2SAT 100
[2018-07-05 20:35] VITALS: BP 106/63; PULSE 68; RESP 14; TEMP 36.6; O2SAT 100
[2018-07-05] MEDS: Ciprofloxacin 500 MG Tablet PO (23:18)
[2018-07-06 02:42] VITALS: BP 107/56; PULSE 79; RESP 14; TEMP 36.9; O2SAT 100
[2018-07-06] MEDS: Acetaminophen 325 MG Tablet 650 MG PO (02:49)
[2018-07-06 07:12] VITALS: O2SAT 97
--- NOTE | 2018-07-06 08:09 | DCINST_ITS ---
- Discharge Diagnoses Current Active Problems: Current Active and Chronic Problems Back pain (Acute) Headache (Acute) Urinary frequency (Acute) You will use the following diet at home:: No restrictions Your food should be the consistency of: Regular Allergies/Adverse Reactions: Allergies ibuprofen Allergy (Verified 07/02/18 20:32) Hives Medications to take at Discharge Aspirin/Acetaminophen/Caffeine [Excedrin Migraine Caplet] 1 each PO DAILY PRN 07/03/18 Ciprofloxacin [Cipro] 500 mg PO BID #14 tablet 07/06/18 Potassium Chloride [K-Dur] 40 meq PO BIDCM #30 tablet 07/06/18 The following prescriptions were given: Ciprofloxacin [Cipro] 500 mg PO BID #14 tablet Potassium Chloride [K-Dur] 40 meq PO BIDCM #30 tablet Primary Care Physician: Amrit Louis MD [Primary Care Provider] - Please follow up with your Primary Care Physician in: in 5-7 days Test Results: Test results from this visit will be discussed in further detail at your follow- up appointment, if applicable. Proposed Discharge Date: 07/06/18
--- NOTE | 2018-07-06 08:10 | PCM.DC.SUM ---
Discharge Date and Diagnosis - Problem List Patient Problems: Active and Suspected Problems Sepsis (Acute) Urinary frequency (Acute) Date of Admission: 07/03/18 Date of Discharge: 07/06/18 - Primary Discharge Diagnosis Active and Suspected Problems Sepsis (Acute) Urinary frequency (Acute) - Secondary Discharge Diagnosis Chronic Problems Back pain (Chronic) Headache (Chronic) Hospital Course and Treatment Imaging Results: Clinical Impression(s) from Imaging Studies Head CTA 07/02/18 22:59 IMPRESSION: Normal [place] without a demonstrated aneurysm or hemodynamically significant stenosis. Electronically Signed: Lane Mendez MD at 1:19 EST , Service support , Neck CTA 07/02/18 22:59 IMPRESSION: Normal bilateral cervical carotid and vertebral arteries. Electronically Signed: Lane Mendez MD at 1:26 EST , Service support , Chest X-Ray 07/02/18 23:05 IMPRESSION: Normal x-ray examination of the chest. Electronically Signed: Wan Bryant MD at 23:23 EST , Service support , Chest CTA 07/04/18 10:28 IMPRESSION: Small bilateral pleural effusions with bibasilar atelectasis. Electronically Signed: Salty Dominguez MD at 11:33 EST Tel [phone], Service support , Microbiology 07/03/18 01:20 Csf, Spinal Fluid Gram Stain - Final 07/03/18 01:20 Csf, Spinal Fluid CSF Culture - Final No growth in 72 hours. 07/04/18 07:20 Blood Culture (Wb) - Arm Right Blood Culture - Preliminary No growth in 48 hours. 07/04/18 07:15 Blood Culture (Wb) - Anticubital Left Blood Culture - Preliminary No growth in 48 hours. 07/03/18 00:18 Blood Culture (Wb) - Venous Blood Culture - Preliminary No growth in 48 hours. 07/02/18 23:45 Blood Culture (Wb) - Anticubital Right Blood Culture - Preliminary No growth in 48 hours. 07/02/18 22:44 Urine, Clean Catch Urine Culture - Final Presumptive E. coli 07/03/18 01:20 Urine, Clean Catch Streptococcus pneumoniae Antigen (M - Final Summary of Care Provided: Patient is a 38-year-old lady who presented with progressive generalized weakness associated with headache and muscle spasms. Patient underwent extensive workup including lumbar puncture which was negative for meningitis. Her urinalysis came back positive for acute cystitis started on broad-spectrum antibiotic therapy and admitted for subsequent management 1. Sepsis secondary to acute cystitis with E. coli; was treated with Rocephin switched to ciprofloxacin once sensitivities were obtained 2. Severe hypokalemia correction in the initiated via oral and IV route 3. Headache: Lumbar puncture came back negative 3. Hypokalemia corrected per protocol 4. Tobacco dependence counseled on cessation, offered nicotine patch for tobacco cravings 5. DVT prophylaxis low risk did encourage early ambulation 6. Tachycardia possibly related to patient's underlying infection however order d-dimer and if possible would like to rule out VTE with CTA of the chest chest CTA was negative for PE however did demonstrate presence of atelectasis. Patient Problems: Active and Suspected Problems Sepsis (Acute) Urinary frequency (Acute) - Physical Exam General: Alert HEENT: Atraumatic Neck: Supple Lungs: Diminished Cardiovascular: Regular rate Neurological: Neuro grossly intact Psych/Mental Status: Normal Affect Vital Signs Temp Pulse Resp BP Pulse Ox 98.4 F 79 14 107/56 L 97 07/06/18 02:42 07/06/18 02:42 07/06/18 02:42 07/06/18 02:42 07/06/18 07:12 Oxygen Flow Rate (L/min) 2 Oxygen Delivery Method Room Air Weight: 58.4 kg Body Mass Index (BMI) 18.0 Intake and Output for Last 24 Hours 07/04/18 07/05/18 07/06/18 23:59 23:59 23:59 Intake Total 4065 / 4065 2232.3 / 2232.3 800 / 800 Output Total 3900 / 3900 Balance 165 / 165 2232.3 / 2232.3 800 / 800 Microbiology Past 72 Hours 07/03/18 01:20 Gram Stain - Final Csf, Spinal Fluid CSF Culture - Final No growth in 72 hours. 07/04/18 07:20 Blood Culture - Preliminary Blood Culture (Wb) - Arm Right No growth in 48 hours. 07/04/18 07:15 Blood Culture - Preliminary Blood Culture (Wb) - Anticubital Left No growth in 48 hours. 07/03/18 00:18 Blood Culture - Preliminary Blood Culture (Wb) - Venous No growth in 48 hours. 07/02/18 23:45 Blood Culture - Preliminary Blood Culture (Wb) - Anticubital Right No growth in 48 hours. 07/02/18 22:44 Urine Culture - Final Urine, Clean Catch Presumptive E. coli Discharge Diet: No Restrictions Discharge Activity: Return to Normal Activity Home Medications: Medications to take at Discharge Aspirin/Acetaminophen/Caffeine [Excedrin Migraine Caplet] 1 each PO DAILY PRN 07/03/18 Ciprofloxacin [Cipro] 500 mg PO BID #14 tablet 07/06/18 Potassium Chloride [K-Dur] 40 meq PO BIDCM #30 tablet 07/06/18 Following Prescrptions Were Given to Patient: Ciprofloxacin [Cipro] 500 mg PO BID #14 tablet Potassium Chloride [K-Dur] 40 meq PO BIDCM #30 tablet Primary Care Physician: Amrit Louis MD [Primary Care Provider] - Please follow up with your Primary Care Physician in: in 5-7 days Disposition: Home Minutes spent on discharge:: 38 Patient Condition:: Stable Medical Necessity - Tobacco Use Smoking Status: Current every day smoker Meaningful Use Info Meaningful Use Diagnoses (Choose all that apply): None applicable Code Visit Inpatient E&M: [id number] [facility]
[2018-07-06 08:42] LABS: Anion Gap 6 (5-15); BUN 10 mg/dL (7-18); BUN/Creat Ratio 13.5 RATIO (10-20); Calcium,Total 7.8 mg/dL (8.5-10.1); Chloride 113 mmol/L (98-107); Creatinine, Serum 0.74 mg/dL (0.55-1.02); EST Glomerular Filtration Rate 92 mL/min (>60); Est Glom Filt Rate - Afr Amer 112 mL/min (>60); Estimated Creatinine Clearance 93.17 ml/min; Glucose 100 mg/dL (74-106); Magnesium 1.9 mg/dL (1.6-2.6); Potassium 4.1 mmol/L (3.5-5.1); Sodium Level 143 mmol/L (136-145)
[2018-07-06] MEDS: Ciprofloxacin 500 MG Tablet PO (10:05)
[2018-07-06 10:07] VITALS: BP 108/62; PULSE 96; RESP 18; TEMP 36.6; O2SAT 98
== END 2018-07-06 10:23 | disposition home or self-care (01) | DRG 872 ==
LOC: ED 07-03 00:37 → ICU 07-03 01:53 → MS2 07-04 13:01
PROVIDERS: Admitting Provider Family Medicine; Emergency Provider Emergency Medicine; Family Provider Family Medicine; PCP Family Medicine; Visit Provider Internal Medicine
DX: A41.51 Sepsis due to Escherichia coli [E. coli] (principal); N17.9 Acute kidney failure, unspecified; N30.00 Acute cystitis without hematuria; R64 Cachexia; Z68.1 Body mass index [BMI] 19.9 or less, adult; R51 Headache; E87.6 Hypokalemia; F17.200 Nicotine dependence, unspecified, uncomplicated; M54.5 Low back pain
CPT/HCPCS: 36415; 70496; 70498; 71045; 71275; 80048; 80053; 81001; 82550; 82945; 83605; 83735; 84157; 84443; 85025; 85027; 85379; 85610; 85730; 87040; 87070; 87077; 87086; 87088; 87186; 87205; 87449; 89050; 89051; 93005; 94762; 97802; 99284; 99406; J7030; J7040; Q9967; A4216; J0696; J2405